=== PATIENT | female | born 1980 | race Caucasian/White ===

== ENCOUNTER 2022-10-02 15:09 | Observation (INO) | payer OTHER, SELFPAY ==
--- NOTE | 2022-10-02 | ECG_ITS ---
Test Reason : cp Blood Pressure : / mmHG Vent. Rate : 094 BPM Atrial Rate : 094 BPM P-R Int : 172 ms QRS Dur : 076 ms QT Int : 362 ms P-R-T Axes : 042 011 160 degrees QTc Int : 452 ms Normal sinus rhythm ST & T wave abnormality, consider inferolateral ischemia ; could be related to LVH Abnormal ECG No previous ECGs available Referred By: Generic ED Physician Electronically Signed By:NISHI MCGEE
--- NOTE | ~2022-10-02 | CT_ITS ---
EXAMINATION: CT ANGIOGRAM OF THE CHEST WITH AND WITHOUT CONTRAST (CT PULMONARY ANGIOGRAM FOR PE) CLINICAL INFORMATION: Acute chest pain and shortness of breath radiating to back r/o PE COMPARISON: None available. TECHNIQUE: Prior to contrast administration, noncontrast localization images were obtained. Subsequently, multidetector volumetric imaging was performed from the thoracic inlet to below the diaphragms following the administration of 85 mL Omnipaque 350 intravenous contrast. No contrast reaction reported Sagittal, coronal, and MIP oblique sagittal reformatted images were obtained on the CT workstation, uploaded to PACS, and reviewed. This CT examination was performed using dose optimization techniques as appropriate, variously including the following: *Automated exposure control *Adjustment of mA and/or kV according to patient size (this includes techniques or standardized protocols for targeted exams where dose is matched to indication/reason for exam; i.e. extremities or head) *Use of iterative reconstruction technique Total exam dose-length product 593 mGy-cm FINDINGS: QUALITY OF STUDY/CONTRAST BOLUS: Suboptimal. PULMONARY ARTERIES: Evaluation is somewhat limited due to patient body habitus and motion. However, accounting for this limitation, no discrete central pulmonary emboli nor large segmental pulmonary emboli are seen. THORACIC AORTA: No aneurysm. LUNG: Focal airspace opacities in the lingula for instance axial image 261 series 8. Mild diffuse bronchial wall thickening with mosaic attenuation of lung parenchyma. Central airways are patent. PLEURA: No pleural effusion or pneumothorax. MEDIASTINUM: Normal heart size. No pericardial effusion. No hilar or mediastinal lymphadenopathy. No evidence of septal bowing or right heart strain. CORONARY ARTERY CALCIFICATION: Mild coronary artery calcifications. CHEST WALL/AXILLA: Fairly symmetric bilateral axillary lymph nodes, likely reactive. OSSEOUS STRUCTURES: No acute or suspicious osseous abnormality. UPPER ABDOMEN: Decreased attenuation of liver parenchyma suggesting hepatic steatosis. No reflux of contrast into the hepatic veins to suggest elevated right heart pressures. CT/CT angio chest PE protocol IMPRESSION: 1. Evaluation is somewhat limited due to patient body habitus and motion. However, accounting for this limitation, no discrete central pulmonary emboli nor large segmental pulmonary emboli are seen. 2. No evidence of increased right-sided heart pressures. 3. Focal airspace opacities in the lingula could be related with an infectious or inflammatory process of the small airways. Recommend a short-term follow-up chest CT to ensure resolution. 4. Hepatic steatosis. VTE: negative
[2022-10-02 15:24] VITALS: BP 207/123; BP 234/112; PULSE 107; PULSE 99; RESP 16; TEMP 36.9; O2SAT 97; O2SAT 98; BMI 68.8
--- NOTE | 2022-10-02 15:26 | ED.SYNCOPE ---
HPI - Syncope General Chief Complaint: Chest Pain Stated Complaint: chest tightness per ems Time Seen by Provider: 10/02/22 15:21 Source: patient and EMS Mode of arrival: EMS Limitations: no limitations History of Present Illness HPI narrative: A 2-year-old female with history of hypertension presents with chest pain, shortness of breath. Her predominant complaint is dyspnea. Symptoms are severe. They are progressive and been going on for several weeks. She does describe a chest heaviness that the substernal. She reports that the heaviness does radiate to the back. Patient describes the pain as mild to moderate. She describes shortness of breath is moderate to severe. Her symptoms are significantly worsened by exertion and that is in particular her breathing. Her chest discomfort is more related to deep inspiration. She denies any fevers or chills. She denies a cough or mucus production. There has been no nausea vomiting. She did recently have blood pressure medication changes. She is otherwise compliant with medications. Denies any drugs or alcohol abuse. Patient takes losartan for blood pressure. Related Data Allergies Allergy/AdvReac Type Severity Reaction Status Date / Time aspirin Allergy Unknown unknown Verified 10/02/22 15:23 Review of Systems Review of Systems: CONSTITUTIONAL: Denies weight loss, fever and chills. HEENT: Denies changes in vision and hearing. RESPIRATORY: + SOB - cough. CV: Denies palpitations + CP. GI: Denies abdominal pain, nausea, vomiting and diarrhea. : Denies dysuria and urinary frequency. MSK: Denies myalgia and joint pain. SKIN: Denies rash and pruritus. NEUROLOGICAL: Denies headache and syncope. PSYCHIATRIC: Denies recent changes in mood. Denies anxiety and depression. All other ROS are negative unless in HPI PMFSH Past Medical History Medical History Hypertension Social History Social History Alcohol intake: current Alcohol intake frequency: holidays/special occasions only Smoked in Last 30 Days: Yes Use of substances other than those prescribed or required for medical reasons: No Advance Directives: No Advance Directives Information Provided: No Patient : No Physical Exam Vital Signs: Vital Signs: Last Vital Signs Temp 98.1 F 10/02/22 17:20 Pulse 86 10/02/22 20:07 Resp 20 08/03/23 20:07 BP 178/100 H 10/02/22 20:07 Pulse Ox 96 10/02/22 20:07 O2 Del Method Room Air 10/02/22 20:07 BMI result Body Mass Index 68.8 GEN: Well developed, no acute distress, alert, oriented HEENT: Normocephalic, atraumatic, normal external ears, nose appears normal, no oropharyngeal edema or exudates Eyes: Normal to appearance Neck: Supple, no lymphadenopathy Respiratory: Talks in complete sentences, no respiratory distress, clear to auscultation bilaterally Cardiovascular: Regular rate and rhythm, no murmurs rubs or gallops Abdomen: Soft, nontender, nondistended, no guarding, no rebound Back: No CVA tenderness Extremities: No clubbing cyanosis 1+ bipedal edema Neurologic: No focal neurologic deficits, cranial nerves 2-12 intact, strength is 5/5 bilaterally Skin: No rash Course Reevaluation(s) Reevaluation #1: Patient is currently have recurrent chest pain. Mild and substernal. She described as heaviness. Repeating a troponin. Trying sublingual nitroglycerin. Patient has an abnormal EKG. CT scan is negative for . At this point, I am seriously considering hospitalization. Time: 18:55 Reevaluation #2: Second set of cardiac enzymes is negative. I contacted the electronic intelligence officer who recommends hospitalization an echocardiogram in the morning. I discussed the case with hospitalist. Will discuss with the patient as well. Time: 20:35 Medications Administered Discontinued Medications Generic Name Dose Route Start Last Admin Trade Name Freq PRN Reason Stop Dose Admin Sodium Chloride 1,000 mls @ 999 mls/hr 10/02/22 15:30 10/02/22 19:16 Ns IV 10/02/22 16:30 Infused .Q1H1M MARCI Infusion Iohexol 85 ml 10/02/22 16:40 10/02/22 16:40 Iohexol 350 Mg/Ml 100 Ml Infus..Btl IV 10/02/22 16:41 85 ml ONCE ONE Administration Labetalol HCl 100 mg 10/02/22 15:34 10/02/22 15:37 Labetalol Hcl 100 Mg Tablet PO 10/02/22 15:35 100 mg ONCE ONE Administration Protocol Medical Decision Making Medical Decision Making MDM Narrative: Patient presents with chest pain, shortness of breath and pain radiating to her back. Differential diagnosis includes acute coronary syndrome, hypertensive urgency, PE, dissection, atypical chest pain, pleurisy, pneumonia, bronchitis. On examination she does have by pedal edema. She has nonreproducible chest pain. Her lungs are clear to auscultation bilaterally without rales or crackles. I plan for the patient will be to obtain a CT angiogram of the chest and only rule out pulmonary embolus but also to assess her aorta for dissection. Additionally, I will check for acute coronary syndrome with cardiac enzymes, EKG. Patient is moderately hypertensive I will give patient labetalol. She did take her losartan earlier today. She likely needs to be on multiple medications. Will check for laboratory analysis to find out if there are any additional other issues including cardiac enzyme, CBC, chemistry. Patient may warrant hospitalization 1 for symptoms 2 for blood pressure and 3 for any other potential abnormalities noted on laboratory analysis. Differential Diagnosis Differential Diagnoses: The differential diagnosis associated with the presentation includes (See above) Admission/Observation Consideration of admission/observation: Escalation of care including admission/observation considered Lab Data MDM Lab Attestation statement: I reviewed the patient's lab results. 10/02/22 15:55 10/02/22 15:56 Labs: Lab Results 10/02/22 10/02/22 10/02/22 Range/Units 15:55 15:55 15:55 WBC 10.2 (4.8-10.8) X10*3/uL RBC 4.50 (4.20-5.50) X10*6/uL Hgb 9.1 L (12.0-16.0) g/dl Hct 32.3 L (37.0-47.0) % MCV 71.8 L (80.0-98.0) fL MCH 20.2 L (27.0-33.0) pg MCHC 28.2 L (31.0-35.0) g/dl RDW 20.9 H (11.0-16.0) % Plt Count 322 (160-400) X10*3/uL MPV 9.2 L (9.4-12.3) fL Immature Gran % (Auto) 0.7 H (0.0-0.4) % Neut % (Auto) 68.7 (45-73) % Lymph % (Auto) 18.5 L (20-40) % [place] % (Auto) 6.7 (2-11) % Eos % (Auto) 4.9 H (0-4) % Baso % (Auto) 0.5 (0-2) % Lymph # (Auto) 1.9 (1.2-4.9) X10*3/uL [place] # (Auto) 0.7 (0.1-1.2) X10*3/uL Eos # (Auto) 0.5 H (0.0-0.4) X10*3/uL Baso # (Auto) 0.1 (0.0-0.2) X10*3/uL Abs Immat Gran (auto) 0.07 H (0.00-0.03) X10*3/uL Absolute Neuts (auto) 7.0 (2.0-8.3) x10*3/uL Absolute Nucleated RBC 0.000 (0.0-0.012) X10*3/uL Nucleated RBC % (auto) 0.0 (0.0-0.2) /100WBC Sodium (135-145) mmol/L Potassium (3.3-5.1) mmol/L Chloride (96-108) mmol/L Carbon Dioxide (22-29) mmol/L Anion Gap (12-20) BUN (9-16) mg/dL Creatinine (0.5-1.4) mg/dL Estim Creat Clear Calc Estimated GFR Random Glucose (60-115) mg/dL Calcium (8.4-10.2) mg/dL Troponin I High Sens 13.1 (<3.5-17.0) ng/L B-Natriuretic Peptide (<100) pg/mL Beta HCG, Quant < 2 mIU/mL Urine Opiates Screen (Not Detect) Urine Fentanyl Screen (Not Detect) Ur Barbiturates Screen (Not Detect) Ur Phencyclidine Scrn (Not Detect) Ur Amphetamines Screen (Not Detect) U Benzodiazepines Scrn (Not Detect) Urine Cocaine Screen (Not Detect) U Marijuana (THC) Screen (Not Detect) Ethyl Alcohol mg/dL 10/02/22 10/02/22 10/02/22 Range/Units 15:55 15:56 19:26 WBC (4.8-10.8) X10*3/uL RBC (4.20-5.50) X10*6/uL Hgb (12.0-16.0) g/dl Hct (37.0-47.0) % MCV (80.0-98.0) fL MCH (27.0-33.0) pg MCHC (31.0-35.0) g/dl RDW (11.0-16.0) % Plt Count (160-400) X10*3/uL MPV (9.4-12.3) fL Immature Gran % (Auto) (0.0-0.4) % Neut % (Auto) (45-73) % Lymph % (Auto) (20-40) % [place] % (Auto) (2-11) % Eos % (Auto) (0-4) % Baso % (Auto) (0-2) % Lymph # (Auto) (1.2-4.9) X10*3/uL [place] # (Auto) (0.1-1.2) X10*3/uL Eos # (Auto) (0.0-0.4) X10*3/uL Baso # (Auto) (0.0-0.2) X10*3/uL Abs Immat Gran (auto) (0.00-0.03) X10*3/uL Absolute Neuts (auto) (2.0-8.3) x10*3/uL Absolute Nucleated RBC (0.0-0.012) X10*3/uL Nucleated RBC % (auto) (0.0-0.2) /100WBC Sodium 142 (135-145) mmol/L Potassium 3.5 (3.3-5.1) mmol/L Chloride 105 (96-108) mmol/L Carbon Dioxide 24 (22-29) mmol/L Anion Gap 17 (12-20) BUN 16 (9-16) mg/dL Creatinine 1.24 (0.5-1.4) mg/dL Estim Creat Clear Calc 96.5 Estimated GFR 47 Random Glucose 161 H (60-115) mg/dL Calcium 9.5 (8.4-10.2) mg/dL Troponin I High Sens (<3.5-17.0) ng/L B-Natriuretic Peptide 73 (<100) pg/mL Beta HCG, Quant mIU/mL Urine Opiates Screen Not Detected (Not Detect) Urine Fentanyl Screen Not Detected (Not Detect) Ur Barbiturates Screen Not Detected (Not Detect) Ur Phencyclidine Scrn Not Detected (Not Detect) Ur Amphetamines Screen Not Detected (Not Detect) U Benzodiazepines Scrn Not Detected (Not Detect) Urine Cocaine Screen Not Detected (Not Detect) U Marijuana (THC) Screen Not Detected (Not Detect) Ethyl Alcohol < 10 mg/dL 10/02/22 Range/Units 19:47 WBC (4.8-10.8) X10*3/uL RBC (4.20-5.50) X10*6/uL Hgb (12.0-16.0) g/dl Hct (37.0-47.0) % MCV (80.0-98.0) fL MCH (27.0-33.0) pg MCHC (31.0-35.0) g/dl RDW (11.0-16.0) % Plt Count (160-400) X10*3/uL MPV (9.4-12.3) fL Immature Gran % (Auto) (0.0-0.4) % Neut % (Auto) (45-73) % Lymph % (Auto) (20-40) % [place] % (Auto) (2-11) % Eos % (Auto) (0-4) % Baso % (Auto) (0-2) % Lymph # (Auto) (1.2-4.9) X10*3/uL [place] # (Auto) (0.1-1.2) X10*3/uL Eos # (Auto) (0.0-0.4) X10*3/uL Baso # (Auto) (0.0-0.2) X10*3/uL Abs Immat Gran (auto) (0.00-0.03) X10*3/uL Absolute Neuts (auto) (2.0-8.3) x10*3/uL Absolute Nucleated RBC (0.0-0.012) X10*3/uL Nucleated RBC % (auto) (0.0-0.2) /100WBC Sodium (135-145) mmol/L Potassium (3.3-5.1) mmol/L Chloride (96-108) mmol/L Carbon Dioxide (22-29) mmol/L Anion Gap (12-20) BUN (9-16) mg/dL Creatinine (0.5-1.4) mg/dL Estim Creat Clear Calc Estimated GFR Random Glucose (60-115) mg/dL Calcium (8.4-10.2) mg/dL Troponin I High Sens 14.3 (<3.5-17.0) ng/L B-Natriuretic Peptide (<100) pg/mL Beta HCG, Quant mIU/mL Urine Opiates Screen (Not Detect) Urine Fentanyl Screen (Not Detect) Ur Barbiturates Screen (Not Detect) Ur Phencyclidine Scrn (Not Detect) Ur Amphetamines Screen (Not Detect) U Benzodiazepines Scrn (Not Detect) Urine Cocaine Screen (Not Detect) U Marijuana (THC) Screen (Not Detect) Ethyl Alcohol mg/dL Independent Interpretation I performed an independent interpretation of an: EKG (Normal sinus rhythm heart rate 94, abnormal EKG including T-wave inversions in multiple leads, ST depression noted in lead 1, 2. Evidence of LVH.) and CT Scan (No PE or dissection seen on CT angiogram of the chest personal interpretation) Radiology Impression Discussion of test interpretation with radiology: I have reviewed the radiologist's reading. Radiologist Impression: CT/CT angio chest PE protocol IMPRESSION: 1.? Evaluation is somewhat limited due to patient body habitus and motion. However, accounting for this limitation, no discrete central pulmonary emboli nor large segmental pulmonary emboli are seen. 2.? No evidence of increased right-sided heart pressures. 3.? Focal airspace opacities in the lingula could be related with an infectious or inflammatory process of the small airways. Recommend a short-term follow-up chest CT to ensure resolution. 4.? Hepatic steatosis. ? VTE: negative Dictated By: Monica Mendoza Signed By: <Electronically signed by Ben Mendoza in [place]> 10/02/22 [id number] Prescription Management I considered prescription management with: Pain Medication and Other (Antihypertensive) Chronic Conditions Patient?s care impacted by: Hypertension Critical Care Time Critical Care Time Critical Care Time: Yes Total Critical Care Time: 45 Attestation: Approximately 45 minutes of critical care time was spent on patient care including direct patient care, discussion with EMS, discussion with other providers, direct patient care, re-evaluation, interpretation and medical data a potentially life-threatening issue. Consideration of diagnosis included aortic dissection, hypertensive urgency/emergency. Discharge Plan Discharge Clinical Impression: Chest pain, Hypertensive urgency, Acute dyspnea, Abnormal ECG, Anemia Patient Disposition: Admitted as Observation
[2022-10-02] MEDS: Labetalol HCL 100 MG TABLET PO (15:37)
[2022-10-02] MEDS: 0.9 % Sodium Chloride 1,000 ML 999 ML IV (15:59)
--- NOTE | 2022-10-02 16:00 | PC.NURSE ---
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 pt was found outside in her car by ems. pt told ems that she was not able to stand up d/t thinking she may faint. pt transferred to [facility]. ekg performed. 20g IV placed in the right AC w/o complications. labs drawn and sent to lab. pt verbalizing 0/10 chest pain but more tightness that radiates between her shoulder blades. pt stating she has SOB upon inspiration. pt displaying no WOB. pt speaking in clear, full sentences. medication and IVF administered per provider order. call sandhu placed within reach.
[2022-10-02 16:03] LABS: MANUAL DIFF FLAG NO
[2022-10-02 16:05] LABS: Basophils Absolute Auto 0.1 X10*3/uL (0.0-0.2); Basophils Percent Auto 0.5 % (0-2); Eosinophils Absolute Auto 0.5 X10*3/uL (0.0-0.4); Eosinophils Percent Auto 4.9 % (0-4); Hematocrit 32.3 % (37.0-47.0); Hemoglobin 9.1 g/dl (12.0-16.0); Imm Gran Abs Auto 0.07 X10*3/uL (0.00-0.03); Imm Gran Pct Auto 0.7 % (0.0-0.4); Lymphocytes Absolute Auto 1.9 X10*3/uL (1.2-4.9); Lymphocytes Percent Auto 18.5 % (20-40); Mean Corpuscular HGB Conc 28.2 g/dl (31.0-35.0); Mean Corpuscular Hemoglobin 20.2 pg (27.0-33.0); Mean Corpuscular Volume 71.8 fL (80.0-98.0); Mean Platelet Volume 9.2 fL (9.4-12.3); Monocytes Absolute Auto 0.7 X10*3/uL (0.1-1.2); Monocytes Percent Auto 6.7 % (2-11); Neutrophils Percent Auto 68.7 % (45-73); Platelet Count 322 X10*3/uL (160-400); Red Cell Distribution Width 20.9 % (11.0-16.0); White Blood Count 10.2 X10*3/uL (4.8-10.8)
[2022-10-02 16:22] LABS: Anion Gap 17 (12-20); Blood Urea Nitrogen 16 mg/dL (9-16); Calcium 9.5 mg/dL (8.4-10.2); Carbon Dioxide 24 mmol/L (22-29); Chloride 105 mmol/L (96-108); Creatinine Clr Calc Pharmacy 96.5; Estimated Glomerular Filt Rate 47; Ethanol < 10 mg/dL; Glucose Random 161 mg/dL (60-115); Potassium 3.5 mmol/L (3.3-5.1); Sodium 142 mmol/L (135-145)
[2022-10-02 16:25] LABS: B Type Natriuretic Peptide 73 pg/mL (<100)
[2022-10-02 16:27] LABS: Troponin-I High Sensitivity 13.1 ng/L (<3.5-17.0)
[2022-10-02 16:28] LABS: HCG Quantitative < 2 mIU/mL
[2022-10-02] MEDS: iohexoL 350 MG/ML 100 ML INFUS..BTL 85 ML IV (16:40)
[2022-10-02 17:20] VITALS: BP 171/102; PULSE 80; RESP 15; TEMP 36.7; O2SAT 95
[2022-10-02 20:07] VITALS: BP 178/100; PULSE 86; RESP 20; O2SAT 96
--- NOTE | 2022-10-02 20:09 | MHC.EDTECH ---
Pt one assisted to commode, able to reposition self in bed.
[2022-10-02 20:10] LABS: Amphetamine Screen Urine Not Detected (Not Detect); Barbiturates, Urine Not Detected (Not Detect); Benzodiazepines Screen Urine Not Detected (Not Detect); Cannabinoid Screen Urine Not Detected (Not Detect); Cocaine Screen Urine Not Detected (Not Detect); Fentanyl, urine Not Detected (Not Detect); Opiate Screen Urine Not Detected (Not Detect); Phencyclidine Screen Urine Not Detected (Not Detect)
[2022-10-02 20:17] LABS: Troponin-I High Sensitivity 14.3 ng/L (<3.5-17.0)
--- NOTE | 2022-10-02 20:45 | PM.IMHP ---
History of Present Illness Date of Service: 10/02/22 Chief Complaint: Chest pain This is a 42-year-old female with pertinent history of essential hypertension, chronic back pain, gastroesophageal reflux disease who presents to the emergency department for evaluation of chest pain and dyspnea. Patient states she has had intermittent substernal chest discomfort that has been ongoing for a while. It is worse with exertion but does not relieve at rest. Does not tried nitroglycerin. It radiates to the left arm and sometimes to the back. No sweating, nausea associated with the pain. No history of CAD. Patient states he also has dyspnea, worse with exertion that has been ongoing for a while. No cough, fever, chills or wheezing. Patient denies palpitations, abdominal pain, changes in urinary or bowel habits. She states he only takes losartan for high blood pressure. Former smoker. Admits that she does have RENETTA but does not use CPAP at home In the emergency department, troponin was found to be negative but EKG was abnormal. Cardiology was consulted who requested admission Review of Systems Constitutional: Constitutional: Reports no additional constitutional complaints Cardiovascular: Cardiovascular: Reports chest pain at rest, Reports chest pain with activity and Reports dyspnea on exertion Respiratory: Respiratory: Reports dyspnea on exertion Gastrointestinal: Gastrointestinal: Reports no additional gastrointestinal complaints Genitourinary: Genitourinary: Reports no additional female genitourinary complaints [facility] Medical History Chronic back pain COPD (chronic obstructive pulmonary disease) GERD (gastroesophageal reflux disease) Hypertension Pertinent family history: No family history of early CAD Social History Alcohol intake: current Alcohol intake frequency: holidays/special occasions only Smoked in Last 30 Days: Yes Use of substances other than those prescribed or required for medical reasons: No Advance Directives: No Advance Directives Information Provided: No Patient : No Meds Allergies Allergy/AdvReac Type Severity Reaction Status Date / Time aspirin Allergy Unknown unknown Verified 10/02/22 15:23 Home Medications Medication Instructions Recorded Confirmed Last Taken Type albuterol sulfate 90 mcg/actuation 2 puff inhalation Q6H 10/02/22 Unknown History aerosol inhaler (Ventolin HFA) budesonide-formoterol HFA 80 2 puff inhalation BID 10/02/22 Unknown History mcg-4.5 mcg/actuation aerosol inhaler (Symbicort) clindamycin phosphate 1 % topical topical BID 10/02/22 Unknown History gel cyclobenzaprine 5 mg tablet 5 mg PO TID PRN moderate pain 10/02/22 Unknown History losartan 50 mg tablet 50 mg PO DAILY 10/02/22 Unknown History meloxicam 15 mg tablet 15 mg PO DAILY 10/02/22 Unknown History pantoprazole 40 mg tablet,delayed 40 mg PO DAILY@0630 10/02/22 Unknown History release pregabalin 25 mg capsule 25 mg PO TID 10/02/22 Unknown History tizanidine 4 mg tablet 8 mg PO TID 10/02/22 Unknown History Physical Exam Vital Signs and Narrative: Vital Signs: Last Vital Signs Temp 98.1 F 10/02/22 17:20 Pulse 86 10/02/22 20:07 Resp 20 10/02/22 20:07 BP 178/100 H 10/02/22 20:07 Pulse Ox 96 10/02/22 20:07 O2 Del Method Room Air 10/02/22 20:07 BMI result Body Mass Index 68.8 Obese middle-aged female lying in bed in no distress Neck supple Regular rate and rhythm, S1-S2 heard Reduced breath sound at bases Abdomen soft nontender, no guarding, no rigidity Patient is awake, alert and oriented to self, place, time and person ; no focal motor deficit Psych: Normal mood Results Labs 10/02/22 15:55 10/02/22 15:56 Labs: Laboratory Results - last 24 hr 10/02/22 10/02/22 10/02/22 15:55 15:55 15:55 MCV 71.8 L MCH 20.2 L MCHC 28.2 L RDW 20.9 H Plt Count 322 MPV 9.2 L Immature Gran % (Auto) 0.7 H Neut % (Auto) 68.7 Lymph % (Auto) 18.5 L [place] % (Auto) 6.7 Eos % (Auto) 4.9 H Baso % (Auto) 0.5 Lymph # (Auto) 1.9 [place] # (Auto) 0.7 Eos # (Auto) 0.5 H Baso # (Auto) 0.1 Abs Immat Gran (auto) 0.07 H Absolute Neuts (auto) 7.0 Absolute Nucleated RBC 0.000 Nucleated RBC % (auto) 0.0 Anion Gap Estim Creat Clear Calc Estimated GFR Random Glucose Calcium B-Natriuretic Peptide 73 Beta HCG, Quant < 2 Urine Opiates Screen Urine Fentanyl Screen Ur Barbiturates Screen Ur Phencyclidine Scrn Ur Amphetamines Screen U Benzodiazepines Scrn Urine Cocaine Screen U Marijuana (THC) Screen Ethyl Alcohol 10/02/22 10/02/22 15:56 19:26 MCV MCH MCHC RDW Plt Count MPV Immature Gran % (Auto) Neut % (Auto) Lymph % (Auto) [place] % (Auto) Eos % (Auto) Baso % (Auto) Lymph # (Auto) [place] # (Auto) Eos # (Auto) Baso # (Auto) Abs Immat Gran (auto) Absolute Neuts (auto) Absolute Nucleated RBC Nucleated RBC % (auto) Anion Gap 17 Estim Creat Clear Calc 96.5 Estimated GFR 47 Random Glucose 161 H Calcium 9.5 B-Natriuretic Peptide Beta HCG, Quant Urine Opiates Screen Not Detected Urine Fentanyl Screen Not Detected Ur Barbiturates Screen Not Detected Ur Phencyclidine Scrn Not Detected Ur Amphetamines Screen Not Detected U Benzodiazepines Scrn Not Detected Urine Cocaine Screen Not Detected U Marijuana (THC) Screen Not Detected Ethyl Alcohol < 10 Imaging Radiologist's Impressions: Impressions Chest CTA 10/02/22 16:44 IMPRESSION: 1. Evaluation is somewhat limited due to patient body habitus and motion. However, accounting for this limitation, no discrete central pulmonary emboli nor large segmental pulmonary emboli are seen. 2. No evidence of increased right-sided heart pressures. 3. Focal airspace opacities in the lingula could be related with an infectious or inflammatory process of the small airways. Recommend a short-term follow-up chest CT to ensure resolution. 4. Hepatic steatosis. VTE: negative Assessment and Plan (1) Chest pain: Status: Acute Plan This is a 42-year-old female with pertinent history of essential hypertension, chronic back pain, gastroesophageal reflux disease who presents to the emergency department for evaluation of chest pain and dyspnea. #. Atypical chest discomfort. Will admit patient with cardiac monitoring. Cardiology was consulted from the ER. Obtaining echo and trending troponin #. Hypertensive urgency/emergency. Patient only on losartan at home. Amlodipine given in the ER. Will need a 2nd antihypertensive agent, appreciate Cardiology assistance. Ordering nitro patch. Obtaining UA. Avoid NSAIDs #. Microcytic anemia. Obtaining iron panel #. RENETTA. Not compliant with CPAP at home. Initiating CPAP while in the hospital #. Gastroesophageal reflux disease: On PPI #. Chronic back pain. Continue home analgesics p.r.n. Med rec pending DVT prophylaxis: Lovenox Full Code Cardiac diet Time Spent With Patient Time: Total time managing care of this patient today ____ minutes. Quality Stroke Does the patient have a stroke diagnosis?: No VTE Prior VTE?: No VTE Risk Level:: Medical - moderate - high VTE Device Contraindication: Treatment Not Indicated VTE Drug Contraindication: N/A - Med Ordered
[2022-10-02 21:10] VITALS: BP 189/109; PULSE 88; RESP 20; O2SAT 98
[2022-10-02] MEDS: amLODIPine Besylate 10 MG TABLET PO (21:17)
[2022-10-02] MEDS: Enoxaparin Sodium 40 MG/0.4 ML SYRINGE SUBCUT (21:18)
--- NOTE | 2022-10-02 21:43 | PHA.MEDREC ---
Pharmacy Consult ? Medication Reconciliation Pharmacy has completed the medication reconciliation. Pt had medications with her so med rec was able to be done using bottles. She was able to confirm how she takes her meds and states that her pcp recently said she could increase tizanidine to 8 mg tid but she has not done that yet and is only taking 4 mg tid.
[2022-10-02 21:49] VITALS: BP 170/99; PULSE 85; RESP 16; O2SAT 98
[2022-10-02] MEDS: Nitroglycerin 2 % Oint 1 GM Packet 1 INCH TRANSDERMA (21:50)
[2022-10-02 22:09] LABS: Iron 25 mcg/dL (30-160); Percent Iron Saturation 7 % (15-50); Total Iron Binding Capacity 354 mcg/dL (228-428); Unsaturated Iron Binding 329 ug/dL
--- NOTE | 2022-10-02 22:15 | MHC.CM.PN ---
ALLEN 10/02. A&Ox4. Lives with 2 daughters and grandson. Son 2 years ago from a drug overdose. Pt quite weepy when speaking about her son. Has a CPAP, but states it is not programmed correctly and does not work. Has no services. States paying the rent is difficult, but her daughters work they they contribute to the household bills. Pt is trying to get on disability. Has car. [employer] positive for housing, but patient declines any resources. Unvaccinated. Will not be vaccinated. D/C plan is home without services. Pt will arrange transportation. CM will follow for any discharge needs.
[2022-10-02 22:20] VITALS: BP 166/105; PULSE 88; RESP 20; O2SAT 94
[2022-10-02 23:24] LABS: Appearance Urine Clear; Color Urine Yellow; Glucose Urine UA 100 mg/dL (Negative); Leukocyte Esterase Urine Negative (Negative); Nitrite Urine Negative (Negative); Specific Gravity - Urine >= 1.030 (1.005-1.025); UMIC TRIGGER UACC YES; Urine Blood Negative (Negative); Urine Ketones Negative (Negative); Urine Protein 100 (2+) mg/dL (Neg-Trace)
[2022-10-02] MEDS: Melatonin 3 MG TABLET 6 MG PO (23:28)
[2022-10-02] MEDS: Acetaminophen 325 MG TABLET 650 MG PO (23:28)
[2022-10-02 23:33] LABS: Bacteria Urine 2+ (None Seen); Squamous Epithelial Cell Urine >20 /HPF (0-2); UACC Culture Trigger YES
[2022-10-03] VITALS (12 sets, daily range): BP systolic 121–184; BP diastolic 68–109; PULSE 67–98; RESP 18–20; TEMP 36.1–36.7; O2SAT 95–98
[2022-10-03 05:38] LABS: MANUAL DIFF FLAG NO
[2022-10-03 05:44] LABS: Basophils Absolute Auto 0.1 X10*3/uL (0.0-0.2); Basophils Percent Auto 0.7 % (0-2); Eosinophils Absolute Auto 0.5 X10*3/uL (0.0-0.4); Eosinophils Percent Auto 5.2 % (0-4); Hematocrit 30.4 % (37.0-47.0); Hemoglobin 8.6 g/dl (12.0-16.0); Imm Gran Abs Auto 0.06 X10*3/uL (0.00-0.03); Imm Gran Pct Auto 0.7 % (0.0-0.4); Lymphocytes Absolute Auto 1.9 X10*3/uL (1.2-4.9); Lymphocytes Percent Auto 21.5 % (20-40); Mean Corpuscular HGB Conc 28.3 g/dl (31.0-35.0); Mean Corpuscular Volume 70.9 fL (80.0-98.0); Mean Platelet Volume 9.7 fL (9.4-12.3); Monocytes Absolute Auto 0.6 X10*3/uL (0.1-1.2); Monocytes Percent Auto 6.9 % (2-11); Neutrophils Absolute Auto 5.8 x10*3/uL (2.0-8.3); Platelet Count 329 X10*3/uL (160-400); Red Blood Count 4.29 X10*6/uL (4.20-5.50); Red Cell Distribution Width 20.8 % (11.0-16.0); White Blood Count 8.9 X10*3/uL (4.8-10.8)
[2022-10-03] MEDS: Acetaminophen 325 MG TABLET 650 MG PO (05:50)
[2022-10-03 06:01] LABS: Troponin-I High Sensitivity 8.3 ng/L (<3.5-17.0)
[2022-10-03 06:11] LABS: Anion Gap 15 (12-20); Blood Urea Nitrogen 17 mg/dL (9-16); Calcium 9.3 mg/dL (8.4-10.2); Carbon Dioxide 22 mmol/L (22-29); Chloride 105 mmol/L (96-108); Creatinine Clr Calc Pharmacy 88.6; Estimated Glomerular Filt Rate 43; Glucose Random 178 mg/dL (60-115); Sodium 138 mmol/L (135-145)
--- NOTE | 2022-10-03 07:00 | CA_ITS ---
Transthoracic Echocardiogram Patient (Last, First, Middle): Martha Mullen, Gender: Female Date of : 1980 Age: 42 Procedure Date: 10/03/2022 Procedure Type: Transthoracic Echocardiogram Location: ER Height: 162.56 cm Weight: 181.89 kg BSA: 2.63 m2 Heart Rate: bpm BP: 154 / 109 mmHg Mother Tester: Referring MD: Toya Faye MD Symptoms: chest pain Study Quality: Adequate ECG Rhythm: Sinus Conclusions: - The left ventricular systolic function is normal. The calculated ejection fraction is 67% by biplane method. - No obvious valvular pathology seen on this study. Findings Left Ventricle Normal left ventricular cavity size. The left ventricular systolic function is normal. The calculated ejection fraction is 67% by biplane method. There is no evidence of regional wall motion abnormalities. Abnormal diastolic function is noted. At least moderate concentric left ventricular hypertrophy. Right Ventricle Normal right ventricular cavity size and systolic function. Atria Both atria are normal in size. Aortic Valve The aortic valve was not well visualized. There is no aortic valve stenosis. There is no aortic valve regurgitation. Mitral Valve The mitral valve appears normal. There is trace mitral valve regurgitation. There is no mitral valve stenosis. Pulmonic Valve The pulmonic valve is likely normal. Tricuspid Valve Normal tricuspid valve structure. There is trace tricuspid valve regurgitation. There is no evidence of pulmonary hypertension. Great Vessels The asc aorta is normal in size. Venous The inferior vena cava is normal in size and collapses greater than 50% with inspiration. Pericardium/Pleural There is no evidence of pericardial effusion. Prior Study Comparison No prior study available for comparison. Recommendations, Care & Conclusions No obvious valvular pathology seen on this study. Measurements 2D Linear Measurements IVSd: 1.60 0.6-0.9/0.6-1.0 cm LVIDd: 4.30 3.9-5.3/4.2-5.9 cm LVIDd Index: 1.63 2.4-3.2/2.2-3.1 cm/m2 LVIDs: 2.70 2.0-3.6 cm LVPWd: 1.70 0.7-1.1 cm Ao Root: 3.00 2.1-3.5 cm LA Diam: 5.00 2.7-3.8/3.0-4.0 cm LAIDs Index: 1.90 1.5-2.3 cm/m2 LV Mass: 373.85 67-162/88-224 g LV Mass Index: 142.15 43-95/49-115 g/m2 LVOT Diam: 2.30 3.0+(-)1.3 cm 2D Systolic Function EF 4C: 66.70 >55% EF 2C: 66.20 >55% EF BiP: 67.20 >55% Mitral Valve MV Pk E: 1.12 MV PK A: 0.69 MV Decel Time: 110.00 E/A: 1.60 E'Lateral: 6.74 E'Medial: 6.31 E/E' Med: 17.70 E/E' Lat: 16.60 PHT: 32.00 MVA PHT: 6.88 Decel Yoakum: 10.21 Aortic Valve AoV Pk Wilson: 1.97 AoV Mn Wilson: 1.38 AoV VTI: 0.37 AoV Pk Grad: 16.00 Aov Mn Grad: 9.00 ELLE Cont.VTI: 2.83 LVOT LVOT Pk Wilson: 1.23 LVOT Mn Wilson: 0.89 LVOT VTI: 0.26 LVOT Pk Grad: 6.00 LVOT Mn Grad: 4.00 LVOT Diam: 2.30 LVOT Area: 4.15 Diastolic Function MV Pk E: 1.12 MV Pk A: 0.69 E/A: 1.60 E'Medial: 6.31 E/E' Med: 17.70 E' Laterial: 6.74 E/E' Lat: 16.60 Right Ventricle TAPSE (mm): 33.00 Tricuspid Valve TR Pk Wilson: 2.54 TR Pk Grad: 26.00 RA Press: 8.00 RVSP: 34.00 Great Vessels Aorta Ao Root-2D: 3.00 2.0-3.7 cm Ao Asc: 3.80 2.1-3.4 cm Pulmonary Valve PV Pk Wilson: 1.38 Peak PV Grad: 8.00 Updated in Other Vendor System with Status of Final Kevin Roy MD electronically signed on 10/03/2022 11:27:43 AM with status of Final
[2022-10-03] MEDS: Albuterol/Iprat 2.5/0.5MG 3 ML AMPUL.NEB INHALE ×2 (07:17→11:42)
[2022-10-03] MEDS: amLODIPine Besylate 5 MG TABLET PO (09:22)
[2022-10-03] MEDS: Losartan Potassium 50 MG TABLET 100 MG PO (09:23)
--- NOTE | 2022-10-03 09:24 | PC.NURSE ---
medication administered per provider order. pharmacy called and notified that pt is missing 2 medications from the pyxis. pharmacy stated they will bring the medication down patient specific. pt verbalizing 9/10 headache and requesting medication to relieve the pain. will notify the provider.
--- NOTE | 2022-10-03 09:41 | P.CONCA_ITS ---
History of Present Illness History of Present Illness Date of Service: 10/03/22 Chief complaint: chest tightness per ems Narrative: This is a cardiology consultation regarding uncontrolled hypertension as well as chest pain. Patient does not have any known cardiac issues including coronary artery disease or myocardial infarction or cardiomyopathy. She is morbidly obese. She is also fairly sedentary. There is a question of asthma at baseline and she uses some inhalers. She states she does get episodes of chest tightening but whenever she takes inhalers that generally goes away. However, yesterday it did go away completely and hence she came to the ER. She has also been having aches and pains essentially all over the body and also headache. Blood pressure was quite high when she came in. The maximum blood pressure was 207/120 mm Hg upon arrival. Right now, 184/99 mm Hg. Troponins have been checked and they were all within normal limits. Review of Systems Review of Systems: Yes all other systems are reviewed and are negative Constitutional: Constitutional: Reports as per HPI and Reports no additional constitutional complaints Eyes: Eyes: Reports as per HPI and Denies no additional eye complaints ENT: Denies system reviewed and no additional complaints, except as documented and Reports as per HPI Cardiovascular: Cardiovascular: Reports as per HPI, Reports no additional cardiovascular complaints, Denies acrocyanosis, Denies cool extremities, Reports chest pain, Denies leg edema, Denies lightheadedness, Denies palpitations and Reports dyspnea Respiratory: Respiratory: Reports as per HPI, Denies no additional respiratory complaints and Reports dyspnea Gastrointestinal: Gastrointestinal: Reports as per HPI and Denies no additional gastrointestinal complaints Genitourinary: Genitourinary: Reports as per HPI Musculoskeletal: Musculoskeletal: Reports no additional musculoskeletal complaints and Reports as per HPI Integumentary/Breasts: Skin/Breast: Reports system reviewed and no additional complaints, except as docu Neurologic: Reports system reviewed and no additional complaints, except as documented and Reports as per HPI Psychiatric: Psychiatric: Reports no additional psychiatric complaints and Reports as per HPI Endocrine: Endocrine: Reports no additional endocrine complaints, Reports as per HPI and Denies palpitations Hematologic/Lymphatic: Hematologic/Lymphatic: Reports no additional hematologic/lymphatic complaints and Reports as per HPI Allergic/Immunologic: Allergic/Immunologic: Reports no additional allergic/immunologic complaints and Reports as per HPI [facility] Past Medical History Medical History Chronic back pain COPD (chronic obstructive pulmonary disease) GERD (gastroesophageal reflux disease) Hypertension Family History Pertinent family history: Vague history of cardiac issues in father side. Social History Social History Alcohol intake: current Alcohol intake frequency: holidays/special occasions only Smoked in Last 30 Days: Yes Use of substances other than those prescribed or required for medical reasons: No Advance Directives: No Advance Directives Information Provided: No Patient : No service: No Meds Allergies Allergy/AdvReac Type Severity Reaction Status Date / Time aspirin Allergy Unknown unknown Verified 10/02/22 15:23 Active Medications: Current Medications Acetaminophen (Acetaminophen 325 Mg Tablet) 650 mg PO Q6H PRN PRN Reason: Pain, Mild (Pain Scale 1-3) Last Admin: 10/03/22 05:50 Dose: 650 mg Albuterol/Ipratropium (Albuterol/Iprat 2.5/0.5mg 3 Ml Ampul.Neb) 3 ml INHALE RQ4H WHILE AWAKE [facility] Last Admin: 10/03/22 07:17 Dose: 3 ml Albuterol/Ipratropium (Albuterol/Iprat 2.5/0.5mg 3 Ml Ampul.Neb) 3 ml INHALE Q4H PRN PRN Reason: Wheezing Amlodipine Besylate (Amlodipine Besylate 5 Mg Tablet) 5 mg PO DAILY [facility]; Protocol Last Admin: 10/03/22 09:22 Dose: 5 mg Enoxaparin Sodium (Enoxaparin Sodium 40 Mg/0.4 Ml Syringe) 40 mg SUBCUT Q12H [facility] Last Admin: 10/02/22 21:18 Dose: 40 mg Fluticasone/Vilanterol (Fluticasone/Vilanterol 200/25 Blst.W.Dev) 1 puff INHALE RDAILY [facility] Losartan Potassium (Losartan Potassium 50 Mg Tablet) 100 mg PO DAILY [facility]; Protocol Last Admin: 10/03/22 09:23 Dose: 100 mg Melatonin (Melatonin 3 Mg Tablet) 6 mg PO BEDTIME PRN PRN Reason: Insomnia Last Admin: 10/02/22 23:28 Dose: 6 mg Omeprazole (Omeprazole 20 Mg Capsule.Dr) 20 mg PO DAILY@0630 [facility] Ondansetron HCl (Ondansetron Hcl 4 Mg/2 Ml Vial) 4 mg IVPUSH Q8H PRN PRN Reason: Nausea and Vomiting Pharmacy Consult (Consult Rx Perform Med Rec) 1 each MISCELLANE ONCE PRN PRN Reason: Consult order Sodium Chloride (0.9 % Sodium Chloride Flush 3 Ml Syringe) 3 [facility] Last Admin: 10/03/22 07:41 Dose: Not Given Tizanidine HCl (Tizanidine Hcl 4 Mg Tablet) 4 mg PO TID [facility] Home Medications Medication Instructions Recorded Confirmed Last Taken Type acetaminophen 325 mg tablet 650 mg PO Q6H PRN Pain 10/02/22 10/02/22 Unknown History (Tylenol) albuterol sulfate 90 mcg/actuation 2 puff inhalation Q6H 10/02/22 10/02/22 Unknown History aerosol inhaler (Ventolin HFA) budesonide-formoterol HFA 80 2 puff inhalation BID 10/02/22 10/02/22 10/02/22 History mcg-4.5 mcg/actuation aerosol inhaler (Symbicort) losartan 50 mg tablet 50 mg PO DAILY 10/02/22 10/02/22 10/02/22 History meloxicam 15 mg tablet 15 mg PO BID 10/02/22 10/02/22 10/02/22 History pantoprazole 40 mg tablet,delayed 40 mg PO DAILY@0630 10/02/22 10/02/22 10/02/22 History release tizanidine 4 mg tablet 4 mg PO TID 10/02/22 10/02/22 10/02/22 History Physical Exam Vital Signs: Vital Signs: Last Vital Signs Temp 98.1 F 10/03/22 02:13 Pulse 91 10/03/22 07:52 Resp 18 10/03/22 07:52 BP 184/99 H 10/03/22 07:52 Pulse Ox 98 10/03/22 07:52 O2 Del Method Simple Mask 10/03/22 07:52 O2 Flow Rate 4 10/03/22 07:52 BMI result Body Mass Index 68.8 Const: General: comfortable and no acute distress Orientation/consciousness: patient oriented x3 HEENT: Other: Unremarkable Head: Yes normal to inspection Neck: Neck: Yes normal visual inspection Chest: Chest palpation & inspection: normal inspection of the chest Resp: Auscultation: clear to auscultation bilaterally Cardio: Palpation: normal PMI Heart sounds: S1 normal heart sound present, S2 normal heart sound present, no gallops, no murmurs and no rubs GI: Palpation (GI): Soft to palpation Back/Spine/Pelvis: Other: unremarkable Skin: General skin exam: no rashes or lesions noted Neuro: General: patient oriented x3 Extrem: General: Yes normal to inspection Psych: Mental Status: mental status grossly normal Objective Labs and Meds 10/03/22 05:29 10/03/22 05:29 Lab results: Laboratory Results - last 24 hr 10/02/22 10/02/22 10/02/22 15:55 15:55 15:55 WBC 10.2 RBC 4.50 Hgb 9.1 L Hct 32.3 L MCV 71.8 L MCH 20.2 L MCHC 28.2 L RDW 20.9 H Plt Count 322 MPV 9.2 L Immature Gran % (Auto) 0.7 H Neut % (Auto) 68.7 Lymph % (Auto) 18.5 L [place] % (Auto) 6.7 Eos % (Auto) 4.9 H Baso % (Auto) 0.5 Lymph # (Auto) 1.9 [place] # (Auto) 0.7 Eos # (Auto) 0.5 H Baso # (Auto) 0.1 Abs Immat Gran (auto) 0.07 H Absolute Neuts (auto) 7.0 Absolute Nucleated RBC 0.000 Nucleated RBC % (auto) 0.0 Sodium Potassium Chloride Carbon Dioxide Anion Gap BUN Creatinine Estim Creat Clear Calc Estimated GFR Random Glucose Calcium Iron TIBC % Saturation Unsat Iron Binding Troponin I High Sens 13.1 B-Natriuretic Peptide Beta HCG, Quant < 2 Urine Color Urine Appearance Urine pH Ur Specific Christine Urine Protein Urine Glucose (UA) Urine Ketones Urine Blood Urine Nitrite Ur Leukocyte Esterase Urine RBC Urine WBC Ur Squamous Epith Cells Urine Bacteria Hyaline Casts Urine Opiates Screen Urine Fentanyl Screen Ur Barbiturates Screen Ur Phencyclidine Scrn Ur Amphetamines Screen U Benzodiazepines Scrn Urine Cocaine Screen U Marijuana (THC) Screen Ethyl Alcohol 10/02/22 10/02/22 10/02/22 15:55 15:56 19:26 WBC RBC Hgb Hct MCV MCH MCHC RDW Plt Count MPV Immature Gran % (Auto) Neut % (Auto) Lymph % (Auto) [place] % (Auto) Eos % (Auto) Baso % (Auto) Lymph # (Auto) [place] # (Auto) Eos # (Auto) Baso # (Auto) Abs Immat Gran (auto) Absolute Neuts (auto) Absolute Nucleated RBC Nucleated RBC % (auto) Sodium 142 Potassium 3.5 Chloride 105 Carbon Dioxide 24 Anion Gap 17 BUN 16 Creatinine 1.24 Estim Creat Clear Calc 96.5 Estimated GFR 47 Random Glucose 161 H Calcium 9.5 Iron TIBC % Saturation Unsat Iron Binding Troponin I High Sens B-Natriuretic Peptide 73 Beta HCG, Quant Urine Color Urine Appearance Urine pH Ur Specific Christine Urine Protein Urine Glucose (UA) Urine Ketones Urine Blood Urine Nitrite Ur Leukocyte Esterase Urine RBC Urine WBC Ur Squamous Epith Cells Urine Bacteria Hyaline Casts Urine Opiates Screen Not Detected Urine Fentanyl Screen Not Detected Ur Barbiturates Screen Not Detected Ur Phencyclidine Scrn Not Detected Ur Amphetamines Screen Not Detected U Benzodiazepines Scrn Not Detected Urine Cocaine Screen Not Detected U Marijuana (THC) Screen Not Detected Ethyl Alcohol < 10 10/02/22 10/02/22 10/02/22 19:26 19:47 19:47 WBC RBC Hgb Hct MCV MCH MCHC RDW Plt Count MPV Immature Gran % (Auto) Neut % (Auto) Lymph % (Auto) [place] % (Auto) Eos % (Auto) Baso % (Auto) Lymph # (Auto) [place] # (Auto) Eos # (Auto) Baso # (Auto) Abs Immat Gran (auto) Absolute Neuts (auto) Absolute Nucleated RBC Nucleated RBC % (auto) Sodium Potassium Chloride Carbon Dioxide Anion Gap BUN Creatinine Estim Creat Clear Calc Estimated GFR Random Glucose Calcium Iron 25 L TIBC 354 % Saturation 7 L Unsat Iron Binding 329 Troponin I High Sens 14.3 B-Natriuretic Peptide Beta HCG, Quant Urine Color Yellow Urine Appearance Clear Urine pH 6.0 Ur Specific Christine >= 1.030 H Urine Protein 100 (2+) H Urine Glucose (UA) 100 H Urine Ketones Negative Urine Blood Negative Urine Nitrite Negative Ur Leukocyte Esterase Negative Urine RBC 3-5 H Urine WBC 11-20 H Ur Squamous Epith Cells >20 Urine Bacteria 2+ Hyaline Casts 3-5 Urine Opiates Screen Urine Fentanyl Screen Ur Barbiturates Screen Ur Phencyclidine Scrn Ur Amphetamines Screen U Benzodiazepines Scrn Urine Cocaine Screen U Marijuana (THC) Screen Ethyl Alcohol 10/03/22 10/03/22 10/03/22 05:29 05:29 05:29 WBC 8.9 RBC 4.29 Hgb 8.6 L Hct 30.4 L MCV 70.9 L MCH 20.0 L MCHC 28.3 L RDW 20.8 H Plt Count 329 MPV 9.7 Immature Gran % (Auto) 0.7 H Neut % (Auto) 65.0 Lymph % (Auto) 21.5 [place] % (Auto) 6.9 Eos % (Auto) 5.2 H Baso % (Auto) 0.7 Lymph # (Auto) 1.9 [place] # (Auto) 0.6 Eos # (Auto) 0.5 H Baso # (Auto) 0.1 Abs Immat Gran (auto) 0.06 H Absolute Neuts (auto) 5.8 Absolute Nucleated RBC 0.000 Nucleated RBC % (auto) 0.0 Sodium 138 Potassium 4.0 Chloride 105 Carbon Dioxide 22 Anion Gap 15 BUN 17 H Creatinine 1.35 Estim Creat Clear Calc 88.6 Estimated GFR 43 Random Glucose 178 H Calcium 9.3 Iron TIBC % Saturation Unsat Iron Binding Troponin I High Sens 8.3 B-Natriuretic Peptide Beta HCG, Quant Urine Color Urine Appearance Urine pH Ur Specific Christine Urine Protein Urine Glucose (UA) Urine Ketones Urine Blood Urine Nitrite Ur Leukocyte Esterase Urine RBC Urine WBC Ur Squamous Epith Cells Urine Bacteria Hyaline Casts Urine Opiates Screen Urine Fentanyl Screen Ur Barbiturates Screen Ur Phencyclidine Scrn Ur Amphetamines Screen U Benzodiazepines Scrn Urine Cocaine Screen U Marijuana (THC) Screen Ethyl Alcohol Imaging Radiologist's impression: Impressions Chest CTA 10/02/22 16:44 IMPRESSION: 1. Evaluation is somewhat limited due to patient body habitus and motion. However, accounting for this limitation, no discrete central pulmonary emboli nor large segmental pulmonary emboli are seen. 2. No evidence of increased right-sided heart pressures. 3. Focal airspace opacities in the lingula could be related with an infectious or inflammatory process of the small airways. Recommend a short-term follow-up chest CT to ensure resolution. 4. Hepatic steatosis. VTE: negative Assessment and Plan (1) Hypertensive urgency: Status: Acute (2) Abnormal ECG: Status: Acute (3) Chest pain: Status: Acute Plan EKG with underlying sinus rhythm at 94/Min; ST-T changes in lateral leads with T inversion. No prior EKG for comparison. Changes could be related to longstanding hypertension. Ischemia cannot be excluded completely. In the labs, hemoglobin is 8.6. Low MCV. Creatinine is 1.35. Cardiac BNP 73. High sensitivity troponins of 13.1, 14.3 and 8.3-within range. In the chest CT scan, focal airspace opacities in the lingula. Possible infectious/inflammatory process of small airways. Overall, uncontrolled hypertension, abnormal EKG but negative troponins. EKG changes could be from hypertension. We will start with an echocardiogram for cardiac function. For hypertension itself, increase the losartan dosing from 50 mg 100 mg. Amlodipine 10 mg daily. Beyond that, may need a diuretic were spironolactone versus Coreg. To be decided. Eventually, consider ischemic workup but she does not have any evidence of ACS at this time. Hence could be done as an outpatient. Her weight will be an issue for stress testing. Discussed with Dr. Perdue. Time Spent With Patient Time: Total time managing care of this patient today ____ minutes. Procedures Date of Service Date of Service: 10/03/22
[2022-10-03] MEDS: predniSONE 20 MG TABLET 40 MG PO (10:22)
--- NOTE | 2022-10-03 10:25 | PC.NURSE ---
medication administered per provider order. notified admitting provider about pt's request for pain medication that is not tylenol. awaiting for response.
[2022-10-03] MEDS: TiZANidine HCL 4 MG TABLET PO ×3 (11:05→20:42)
[2022-10-03] MEDS: Enoxaparin Sodium 40 MG/0.4 ML SYRINGE SUBCUT ×2 (11:05→20:42)
[2022-10-03] MEDS: SUMAtriptan succinate 50 MG TABLET PO (11:05)
--- NOTE | 2022-10-03 11:08 | PC.NURSE ---
medication administered per provider order.
--- NOTE | 2022-10-03 11:48 | PC.NURSE ---
called [facility] to give report, RN was unavailable to take report - told person on the phone to have them tigertext me when they are available for me to give report.
--- NOTE | 2022-10-03 12:06 | PC.NURSE ---
report given to RN on [facility].
--- NOTE | 2022-10-03 14:32 | HO.PM.IMPN ---
Subjective Subjective Date of Service: 10/03/22 Interval History: Chest tightness feels like asthma attack to her No sputum production Review of Systems Review of Systems: Yes all other systems are reviewed and are negative Physical Exam Vital Signs: Vital Signs: Last Vital Signs Temp 97.0 F 10/03/22 13:16 Pulse 77 10/03/22 13:16 Resp 18 10/03/22 13:16 BP 141/90 H 10/03/22 13:16 Pulse Ox 95 10/03/22 13:16 O2 Del Method Room Air 10/03/22 13:16 O2 Flow Rate 4 10/03/22 07:52 BMI result Body Mass Index 68.8 Gen: in no acute distress HEENT: sclera anicteric, moist mucus membranes Neck: supple Lungs: diminished Heart: regular rate and rhythm, no murmurs Abd: soft, non-tender, non-distended, morbidly obese Ext: no edema Skin: warm/well-perfused Neuro: alert and oriented x3, no focal findings Psych: appropriate affect Objective Data Active Medications Acetaminophen (Acetaminophen 325 Mg Tablet) 650 mg PO Q6H PRN PRN Reason: Pain, Mild (Pain Scale 1-3) Last Admin: 10/03/22 05:50 Dose: 650 mg Documented By: TOOTIE Albuterol/Ipratropium (Albuterol/Iprat 2.5/0.5mg 3 Ml Ampul.Neb) 3 ml INHALE RQ4H WHILE AWAKE [facility] Last Admin: 10/03/22 11:42 Dose: 3 ml Documented By: MAME Albuterol/Ipratropium (Albuterol/Iprat 2.5/0.5mg 3 Ml Ampul.Neb) 3 ml INHALE Q4H PRN PRN Reason: Wheezing Amlodipine Besylate (Amlodipine Besylate 5 Mg Tablet) 5 mg PO DAILY [facility]; Protocol Last Admin: 10/03/22 09:22 Dose: 5 mg Documented By: NICANOR Enoxaparin Sodium (Enoxaparin Sodium 40 Mg/0.4 Ml Syringe) 40 mg SUBCUT Q12H [facility] Last Admin: 10/03/22 11:05 Dose: 40 mg Documented By: NICANOR Fluticasone/Vilanterol (Fluticasone/Vilanterol 200/25 Blst.W.Dev) 1 puff INHALE RDAILY [facility] Last Admin: 10/03/22 09:45 Dose: Not Given Documented By: MAME Non-Admin Reason: Med unavailable, [facility] aware Losartan Potassium (Losartan Potassium 50 Mg Tablet) 100 mg PO DAILY [facility]; Protocol Last Admin: 10/03/22 09:23 Dose: 100 mg Documented By: NICANOR Melatonin (Melatonin 3 Mg Tablet) 6 mg PO BEDTIME PRN PRN Reason: Insomnia Last Admin: 10/02/22 23:28 Dose: 6 mg Documented By: TOOTIE Omeprazole (Omeprazole 20 Mg Capsule.Dr) 20 mg PO DAILY@0630 [facility] Ondansetron HCl (Ondansetron Hcl 4 Mg/2 Ml Vial) 4 mg IVPUSH Q8H PRN PRN Reason: Nausea and Vomiting Pharmacy Consult (Consult Rx Perform Med Rec) 1 each MISCELLANE ONCE PRN PRN Reason: Consult order Prednisone (Prednisone 20 Mg Tablet) 40 mg PO DAILY [facility] Last Admin: 10/03/22 10:22 Dose: 40 mg Documented By: NICANOR Sodium Chloride (0.9 % Sodium Chloride Flush 3 Ml Syringe) 3 ml IVFLUSH QSHIFT [facility] Last Admin: 10/03/22 07:41 Dose: Not Given Documented By: SHABBIR Non-Admin Reason: Patient Asleep Tizanidine HCl (Tizanidine Hcl 4 Mg Tablet) 4 mg PO TID [facility] Last Admin: 10/03/22 14:22 Dose: 4 mg Documented By: GARRY Labs 10/03/22 05:29 10/03/22 05:29 Labs: Laboratory Results - last 24 hr 10/02/22 10/02/22 10/02/22 15:55 15:55 15:55 MCV 71.8 L MCH 20.2 L MCHC 28.2 L RDW 20.9 H Plt Count 322 MPV 9.2 L Immature Gran % (Auto) 0.7 H Neut % (Auto) 68.7 Lymph % (Auto) 18.5 L [place] % (Auto) 6.7 Eos % (Auto) 4.9 H Baso % (Auto) 0.5 Lymph # (Auto) 1.9 [place] # (Auto) 0.7 Eos # (Auto) 0.5 H Baso # (Auto) 0.1 Abs Immat Gran (auto) 0.07 H Absolute Neuts (auto) 7.0 Absolute Nucleated RBC 0.000 Nucleated RBC % (auto) 0.0 Anion Gap Estim Creat Clear Calc Estimated GFR Random Glucose Calcium Iron TIBC % Saturation Unsat Iron Binding B-Natriuretic Peptide 73 Beta HCG, Quant < 2 Urine Color Urine Appearance Urine pH Ur Specific [place] Urine Protein Urine Glucose (UA) Urine Ketones Urine Blood Urine Nitrite Ur Leukocyte Esterase Urine RBC Urine WBC Ur Squamous Epith Cells Urine Bacteria Hyaline Casts Urine Opiates Screen Urine Fentanyl Screen Ur Barbiturates Screen Ur Phencyclidine Scrn Ur Amphetamines Screen U Benzodiazepines Scrn Urine Cocaine Screen U Marijuana (THC) Screen Ethyl Alcohol 10/02/22 10/02/22 10/02/22 15:56 19:26 19:26 MCV MCH MCHC RDW Plt Count MPV Immature Gran % (Auto) Neut % (Auto) Lymph % (Auto) [place] % (Auto) Eos % (Auto) Baso % (Auto) Lymph # (Auto) [place] # (Auto) Eos # (Auto) Baso # (Auto) Abs Immat Gran (auto) Absolute Neuts (auto) Absolute Nucleated RBC Nucleated RBC % (auto) Anion Gap 17 Estim Creat Clear Calc 96.5 Estimated GFR 47 Random Glucose 161 H Calcium 9.5 Iron TIBC % Saturation Unsat Iron Binding B-Natriuretic Peptide Beta HCG, Quant Urine Color Yellow Urine Appearance Clear Urine pH 6.0 Ur Specific [place] >= 1.030 H Urine Protein 100 (2+) H Urine Glucose (UA) 100 H Urine Ketones Negative Urine Blood Negative Urine Nitrite Negative Ur Leukocyte Esterase Negative Urine RBC 3-5 H Urine WBC 11-20 H Ur Squamous Epith Cells >20 Urine Bacteria 2+ Hyaline Casts 3-5 Urine Opiates Screen Not Detected Urine Fentanyl Screen Not Detected Ur Barbiturates Screen Not Detected Ur Phencyclidine Scrn Not Detected Ur Amphetamines Screen Not Detected U Benzodiazepines Scrn Not Detected Urine Cocaine Screen Not Detected U Marijuana (THC) Screen Not Detected Ethyl Alcohol < 10 10/02/22 10/03/22 10/03/22 19:47 05:29 05:29 MCV 70.9 L MCH 20.0 L MCHC 28.3 L RDW 20.8 H Plt Count 329 MPV 9.7 Immature Gran % (Auto) 0.7 H Neut % (Auto) 65.0 Lymph % (Auto) 21.5 [place] % (Auto) 6.9 Eos % (Auto) 5.2 H Baso % (Auto) 0.7 Lymph # (Auto) 1.9 [place] # (Auto) 0.6 Eos # (Auto) 0.5 H Baso # (Auto) 0.1 Abs Immat Gran (auto) 0.06 H Absolute Neuts (auto) 5.8 Absolute Nucleated RBC 0.000 Nucleated RBC % (auto) 0.0 Anion Gap 15 Estim Creat Clear Calc 88.6 Estimated GFR 43 Random Glucose 178 H Calcium 9.3 Iron 25 L TIBC 354 % Saturation 7 L Unsat Iron Binding 329 B-Natriuretic Peptide Beta HCG, Quant Urine Color Urine Appearance Urine pH Ur Specific [place] Urine Protein Urine Glucose (UA) Urine Ketones Urine Blood Urine Nitrite Ur Leukocyte Esterase Urine RBC Urine WBC Ur Squamous Epith Cells Urine Bacteria Hyaline Casts Urine Opiates Screen Urine Fentanyl Screen Ur Barbiturates Screen Ur Phencyclidine Scrn Ur Amphetamines Screen U Benzodiazepines Scrn Urine Cocaine Screen U Marijuana (THC) Screen Ethyl Alcohol Assessment and Plan (1) Chest pain: Status: Acute Plan d2 42yo F with morbid obesity + HTN + asthma presenting with chest pressure and dyspnea chest pain - suspect asthma rather than ACS. Trops negative and TTE without WMAs. EKG did show lateral TWIs but no prior for comparison. Could be due to HTN. Outpt ischemic workup per Cardiology HTN urgency - losartan- increase to 100 mg/d, add amlodipine 10 mg/d asthma exacerbation - prednisone burst, standing/prn nebs, controller inhalers LOGAN - FOBT, start Fe repletion RENETTA - CPAP at night [noncompliant at home] GERD - PPI chronic back pain - tizanidine VTE ppx - LMWH dispo - home possibly tomorrow In my clinical judgment, the patient requires continued inpatient hospitalization for the following reasons: BP control, asthma exacerbation Time Spent With Patient Time: Total time managing care of this patient today ___35_ minutes. Quality Stroke Does the patient have a stroke diagnosis?: No VTE Prior VTE?: No VTE Risk Level:: Medical - moderate - high VTE Device Contraindication: Treatment Not Indicated VTE Drug Contraindication: N/A - Med Ordered
[2022-10-03 16:16] LABS: Adenovirus PCR Not Detected (Not Detect.); Bordetella parapertussis PCR Not Detected (Not Detect.); Bordetella pertussis PCR Not Detected (Not Detect.); Chlamydia pneumoniae PCR Not Detected (Not Detect.); Coronavirus 229E PCR Not Detected (Not Detect.); Coronavirus HKU1 PCR Not Detected (Not Detect.); Coronavirus NL63 PCR Not Detected (Not Detect.); Coronavirus OC43 PCR Not Detected (Not Detect.); Human metapneumovirus PCR Not Detected (Not Detect.); Influenza A PCR Not Detected (Not Detect.); Influenza B PCR Not Detected (Not Detect.); Mycoplasma pneumoniae PCR Not Detected (Not Detect.); Parainfluenza 1 PCR Not Detected (Not Detect.); Parainfluenza 2 PCR Not Detected (Not Detect.); Parainfluenza 3 PCR Not Detected (Not Detect.); Parainfluenza 4 PCR Not Detected (Not Detect.); RSV PCR Not Detected (Not Detect.); Rhino/Enterovirus PCR Not Detected (Not Detect.); SARS-CoV-2 PCR Not Detected (Not Detect.)
[2022-10-03] MEDS: Ferrous Sulfate 324 MG TABLET.DR PO (16:17)
[2022-10-03] MEDS: 0.9 % Sodium Chloride Flush 3 ML SYRINGE IVFLUSH ×2 (16:17→20:45)
[2022-10-03 17:27] LABS: Procalcitonin 0.05 ng/mL
[2022-10-04] VITALS (7 sets, daily range): BP systolic 138–169; BP diastolic 73–89; PULSE 64–92; RESP 18–20; TEMP 36.1–36.5; O2SAT 95–99
[2022-10-04 03:48] LABS: Estimated Average Glucose 183 mg/dL
[2022-10-04] MEDS: Omeprazole 20 MG CAPSULE.DR PO (06:17)
[2022-10-04 06:27] LABS: Hematocrit 31.2 % (37.0-47.0); Mean Corpuscular HGB Conc 28.8 g/dl (31.0-35.0); Mean Corpuscular Hemoglobin 20.5 pg (27.0-33.0); Mean Corpuscular Volume 71.1 fL (80.0-98.0); Mean Platelet Volume 9.5 fL (9.4-12.3); Platelet Count 304 X10*3/uL (160-400); Red Blood Count 4.39 X10*6/uL (4.20-5.50); Red Cell Distribution Width 20.8 % (11.0-16.0); White Blood Count 10.1 X10*3/uL (4.8-10.8)
[2022-10-04 06:46] LABS: Anion Gap 16 (12-20); Blood Urea Nitrogen 23 mg/dL (9-16); Calcium 9.5 mg/dL (8.4-10.2); Carbon Dioxide 23 mmol/L (22-29); Chloride 102 mmol/L (96-108); Cholesterol 218 mg/dL; Creatinine Clr Calc Pharmacy 79.7; Estimated Glomerular Filt Rate 38; Glucose Random 195 mg/dL (60-115); HDL Cholesterol 31 mg/dL; LDL Cholesterol Calculated 158 mg/dl; Potassium 4.2 mmol/L (3.3-5.1); Sodium 137 mmol/L (135-145); Triglycerides 146 mg/dL
[2022-10-04 07:24] LABS: Reflex LDLD? No
[2022-10-04] MEDS: amLODIPine Besylate 10 MG TABLET PO (08:05)
[2022-10-04] MEDS: Ferrous Sulfate 324 MG TABLET.DR PO (08:05)
[2022-10-04] MEDS: predniSONE 20 MG TABLET 40 MG PO (08:05)
[2022-10-04] MEDS: TiZANidine HCL 4 MG TABLET PO ×3 (08:05→19:31)
[2022-10-04] MEDS: Enoxaparin Sodium 40 MG/0.4 ML SYRINGE SUBCUT ×2 (08:06→19:31)
[2022-10-04] MEDS: Losartan Potassium 50 MG TABLET 100 MG PO (08:06)
[2022-10-04 08:08] LABS: Glucose, Whole Blood 157 mg/dL (60-115)
[2022-10-04] MEDS: 0.9 % Sodium Chloride Flush 3 ML SYRINGE IVFLUSH ×3 (08:08→19:33)
--- NOTE | 2022-10-04 10:41 | HO.PM.IMPN ---
Subjective Subjective Date of Service: 10/04/22 Interval History: chest pressure resolved CPAP machine broken new dx DM2 pt did not tolerate MTF in past due to kidney pain but has appt with PCP in next 1-2 wk to discuss Ozempic for weight loss which would also help with DM Review of Systems Review of Systems: Yes all other systems are reviewed and are negative Physical Exam Vital Signs: Vital Signs: Last Vital Signs Temp 97.1 F 10/04/22 07:18 Pulse 78 10/04/22 07:18 Resp 20 10/04/22 07:18 BP 146/83 H 10/04/22 07:18 Pulse Ox 97 10/04/22 07:18 O2 Del Method CPAP 10/04/22 07:18 O2 Flow Rate 4 10/03/22 07:52 BMI result Body Mass Index 68.8 Gen: in no acute distress HEENT: sclera anicteric, moist mucus membranes Neck: supple Lungs: clear to auscultation bilaterally Heart: regular rate and rhythm, no murmurs Abd: soft, non-tender, non-distended, morbidly obese Ext: no edema Skin: warm/well-perfused Neuro: alert and oriented x3, no focal findings Psych: appropriate affect Objective Data Active Medications Acetaminophen (Acetaminophen 325 Mg Tablet) 650 mg PO Q6H PRN PRN Reason: Pain, Mild (Pain Scale 1-3) Last Admin: 10/03/22 05:50 Dose: 650 mg Documented By: TOOTIE Albuterol/Ipratropium (Albuterol/Iprat 2.5/0.5mg 3 Ml Ampul.Neb) 3 ml INHALE RQ4H WHILE AWAKE [facility] Last Admin: 10/04/22 07:15 Dose: Not Given Documented By: CONOR Non-Admin Reason: Patient Asleep Albuterol/Ipratropium (Albuterol/Iprat 2.5/0.5mg 3 Ml Ampul.Neb) 3 ml INHALE Q4H PRN PRN Reason: Wheezing Amlodipine Besylate (Amlodipine Besylate 10 Mg Tablet) 10 mg PO DAILY [facility]; Protocol Last Admin: 10/04/22 08:05 Dose: 10 mg Documented By: ALICJA Atorvastatin Calcium (Atorvastatin Calcium 80 Mg Tablet) 80 mg PO BEDTIME [facility] Dextrose (Dextrose 50 % 25 Gm/50 Ml Syringe) 25 gm IVPUSH Q15M PRN; Protocol PRN Reason: per Hypoglycemia Standing Ord. Enoxaparin Sodium (Enoxaparin Sodium 40 Mg/0.4 Ml Syringe) 40 mg SUBCUT Q12H [facility] Last Admin: 10/04/22 08:06 Dose: 40 mg Documented By: ALICJA Ferrous Sulfate (Ferrous Sulfate 324 Mg Tablet.) 324 mg PO DAILY [facility] Last Admin: 10/04/22 08:05 Dose: 324 mg Documented By: ALICJA Fluticasone/Vilanterol (Fluticasone/Vilanterol 200/25 Blst.W.Dev) 1 puff INHALE RDAILY [facility] Last Admin: 10/04/22 07:16 Dose: Not Given Documented By: CONOR Non-Admin Reason: Med Not Available Glucose (Glucose Gel 15 Gm Gel..Gram.) 15 gm PO Q15M PRN; Protocol PRN Reason: per Hypoglycemia Standing Ord. Insulin Human Lispro (Insulin Lispro 100 Unit/Ml 3 Ml Vial) 0 unit SUBCUT QIDACHS [facility]; Protocol Last Admin: 10/04/22 08:09 Dose: Not Given Documented By: ALICJA Non-Admin Reason: Patient Refused Losartan Potassium (Losartan Potassium 50 Mg Tablet) 100 mg PO DAILY [facility]; Protocol Last Admin: 10/04/22 08:06 Dose: 100 mg Documented By: ALICJA Melatonin (Melatonin 3 Mg Tablet) 6 mg PO BEDTIME PRN PRN Reason: Insomnia Last Admin: 10/02/22 23:28 Dose: 6 mg Documented By: TOOTIE Omeprazole (Omeprazole 20 Mg Capsule.) 20 mg PO DAILY@0630 [facility] Last Admin: 10/04/22 06:17 Dose: 20 mg Documented By: RILEY Ondansetron HCl (Ondansetron Hcl 4 Mg/2 Ml Vial) 4 mg IVPUSH Q8H PRN PRN Reason: Nausea and Vomiting Pharmacy Consult (Consult Rx Perform Med Rec) 1 each MISCELLANE ONCE PRN PRN Reason: Consult order Prednisone (Prednisone 20 Mg Tablet) 40 mg PO DAILY [facility] Last Admin: 10/04/22 08:05 Dose: 40 mg Documented By: ALICJA Sodium Chloride (0.9 % Sodium Chloride Flush 3 Ml Syringe) 3 ml IVFLUSH QSHIFT [facility] Last Admin: 10/04/22 08:08 Dose: 3 ml Documented By: ALICJA Tizanidine HCl (Tizanidine Hcl 4 Mg Tablet) 4 mg PO TID [facility] Last Admin: 10/04/22 08:05 Dose: 4 mg Documented By: ALICJA Labs 10/04/22 05:56 10/04/22 05:56 Labs: Laboratory Results - last 24 hr 10/03/22 10/03/22 10/03/22 05:29 05:29 13:28 MCV MCH MCHC RDW Plt Count MPV Absolute Nucleated RBC Nucleated RBC % (auto) Anion Gap Estim Creat Clear Calc Estimated GFR POC Glucose Random Glucose Estimat Average Glucose 183 Hemoglobin A1c % 8.0 Calcium Triglycerides Cholesterol LDL Cholesterol, Calc HDL Cholesterol Procalcitonin 0.05 Respiratory Panel [place] See Note Adenovirus (Rapid PCR) Not Detected B.pert (TEM-PCR) Not Detected B.parapertussis DNA PCR Not Detected C. pneumoniae DNA (PCR) Not Detected Coronavirus OC43 (PCR) Not Detected Coronavirus HKU1 (PCR) Not Detected Coronavirus 229E (PCR) Not Detected Coronavirus NL63 (PCR) Not Detected Human Metapneumovir PCR Not Detected Influenza A (RT-PCR) Not Detected Influenza B (RT-PCR) Not Detected M. pneumoniae (PCR) Not Detected Parainfluenza 1 (PCR) Not Detected Parainfluenza 2 (PCR) Not Detected Parainfluenza 3 (PCR) Not Detected Parainfluenza 4 (PCR) Not Detected RSV (PCR) Not Detected Entero/Rhino (PCR) Not Detected SARS-CoV-2 RNA (RT-PCR) Not Detected 10/04/22 10/04/22 10/04/22 05:56 05:56 05:56 MCV 71.1 L MCH 20.5 L MCHC 28.8 L RDW 20.8 H Plt Count 304 MPV 9.5 Absolute Nucleated RBC 0.000 Nucleated RBC % (auto) 0.0 Anion Gap 16 Estim Creat Clear Calc 79.7 Estimated GFR 38 POC Glucose Random Glucose 195 H Estimat Average Glucose Hemoglobin A1c % Calcium 9.5 Triglycerides 146 Cholesterol 218 LDL Cholesterol, Calc 158 HDL Cholesterol 31 Procalcitonin Respiratory Panel [place] Adenovirus (Rapid PCR) B.pert (TEM-PCR) B.parapertussis DNA PCR C. pneumoniae DNA (PCR) Coronavirus OC43 (PCR) Coronavirus HKU1 (PCR) Coronavirus 229E (PCR) Coronavirus NL63 (PCR) Human Metapneumovir PCR Influenza A (RT-PCR) Influenza B (RT-PCR) M. pneumoniae (PCR) Parainfluenza 1 (PCR) Parainfluenza 2 (PCR) Parainfluenza 3 (PCR) Parainfluenza 4 (PCR) RSV (PCR) Entero/Rhino (PCR) SARS-CoV-2 RNA (RT-PCR) 10/04/22 08:05 MCV MCH MCHC RDW Plt Count MPV Absolute Nucleated RBC Nucleated RBC % (auto) Anion Gap Estim Creat Clear Calc Estimated GFR POC Glucose 157 H Random Glucose Estimat Average Glucose Hemoglobin A1c % Calcium Triglycerides Cholesterol LDL Cholesterol, Calc HDL Cholesterol Procalcitonin Respiratory Panel [place] Adenovirus (Rapid PCR) B.pert (TEM-PCR) B.parapertussis DNA PCR C. pneumoniae DNA (PCR) Coronavirus OC43 (PCR) Coronavirus HKU1 (PCR) Coronavirus 229E (PCR) Coronavirus NL63 (PCR) Human Metapneumovir PCR Influenza A (RT-PCR) Influenza B (RT-PCR) M. pneumoniae (PCR) Parainfluenza 1 (PCR) Parainfluenza 2 (PCR) Parainfluenza 3 (PCR) Parainfluenza 4 (PCR) RSV (PCR) Entero/Rhino (PCR) SARS-CoV-2 RNA (RT-PCR) TTE 10/03/22 - The left ventricular systolic function is normal.? The ? calculated ejection fraction is 67% by biplane method. ? - No obvious valvular pathology seen on this study.? Assessment and Plan (1) Chest pain: Status: Acute Plan d3 42yo F with morbid obesity + HTN + asthma presenting with chest pressure and dyspnea chest pain - Trops negative and TTE without WMAs. EKG did show lateral TWIs but no prior for comparison; could be due to HTN. Chest pain likely due to asthma exacerbation. Outpt ischemic workup per Cardiology HTN urgency - losartan- increased to 100 mg/d, added amlodipine 10 mg/d renal insufficiency - SCr worse, unknown baseline, suspect due to HTN urgency, will recheck BMP tomorrow asthma exacerbation - prednisone d2/5, standing/prn nebs, controller inhalers. RPP negative LOGAN - FOBT, start Fe repletion HLD - start atorvastatin new dx DM2 - A1c 8. Start GPZ for now [previously intolerant of MTF] and pt had appt with PCP in 1-2 weeks anyways to start Ozempic for weight loss RENETTA - CPAP at night. RT consult to see if can help with getting replacement home machine. GERD - PPI chronic back pain - tizanidine VTE ppx - LMWH dispo - home possibly tomorrow In my clinical judgment, the patient requires continued inpatient hospitalization for the following reasons: BP control, asthma exacerbation, LILIANA Time Spent With Patient Time: Total time managing care of this patient today __35__ minutes. Quality Stroke Does the patient have a stroke diagnosis?: No VTE Prior VTE?: No VTE Risk Level:: Medical - moderate - high VTE Device Contraindication: Treatment Not Indicated VTE Drug Contraindication: N/A - Med Ordered
[2022-10-04] MEDS: glipiZIDE 5 MG TABLET PO ×2 (11:05→16:12)
[2022-10-04 11:57] LABS: Glucose, Whole Blood 410 mg/dL (60-115)
[2022-10-04 11:57] LABS: Glucose, Whole Blood 337 mg/dL (60-115)
[2022-10-04] MEDS: Insulin Lispro 100 UNIT/ML 3 ML VIAL SUBCUT (12:23)
[2022-10-04] MEDS: Butalb/Acetamin/Caff 50/325/40 TABLET 1 TAB PO (12:53)
[2022-10-04] MEDS: Albuterol/Iprat 2.5/0.5MG 3 ML AMPUL.NEB INHALE (14:07)
[2022-10-04 14:26] LABS: Creatinine Urine 91.15 mg/dL; Microalbum/Creatinine Ratio Ur 191.9 ug/mg cr
[2022-10-04 16:18] LABS: Glucose, Whole Blood 175 mg/dL (60-115)
--- NOTE | 2022-10-04 16:46 | PC.NURSE ---
Pt reporting headache unrelieved by APAP, fiorocet ordered and given with good effect. Pt denies chest pain throughout the day. OOB to bathroom and was dyspneic with exertion, prn resp tx given with good effect. Pt hyperglycemic at lunchtime and administered 8u insulin as ordered, aware.
[2022-10-04] MEDS: Atorvastatin Calcium 80 MG TABLET PO (19:31)
[2022-10-04 20:26] LABS: Glucose, Whole Blood 156 mg/dL (60-115)
[2022-10-05] VITALS: BP 117/58; PULSE 78; RESP 20; TEMP 36.5; O2SAT 97
[2022-10-05 04:00] VITALS: BP 132/67; PULSE 76; RESP 20; TEMP 36.2; O2SAT 95
[2022-10-05] MEDS: Omeprazole 20 MG CAPSULE.DR PO (05:30)
[2022-10-05 06:38] LABS: Anion Gap 16 (12-20); Blood Urea Nitrogen 27 mg/dL (9-16); Calcium 9.4 mg/dL (8.4-10.2); Carbon Dioxide 23 mmol/L (22-29); Chloride 103 mmol/L (96-108); Creatinine Clr Calc Pharmacy 82.5; Estimated Glomerular Filt Rate 39; Glucose Random 126 mg/dL (60-115); Potassium 3.7 mmol/L (3.3-5.1); Sodium 138 mmol/L (135-145)
[2022-10-05 07:25] VITALS: BP 147/80; PULSE 74; RESP 18; TEMP 36.4; O2SAT 99
[2022-10-05 07:54] LABS: Glucose, Whole Blood 120 mg/dL (60-115)
[2022-10-05] MEDS: predniSONE 20 MG TABLET 40 MG PO (08:26)
[2022-10-05] MEDS: glipiZIDE 5 MG TABLET PO (08:26)
[2022-10-05] MEDS: TiZANidine HCL 4 MG TABLET PO (08:26)
[2022-10-05] MEDS: Losartan Potassium 50 MG TABLET 100 MG PO (08:26)
[2022-10-05] MEDS: Ferrous Sulfate 324 MG TABLET.DR PO (08:26)
[2022-10-05] MEDS: amLODIPine Besylate 10 MG TABLET PO (08:27)
[2022-10-05] MEDS: Enoxaparin Sodium 40 MG/0.4 ML SYRINGE SUBCUT (08:27)
[2022-10-05] MEDS: 0.9 % Sodium Chloride Flush 3 ML SYRINGE IVFLUSH (08:38)
[2022-10-05] MEDS: Albuterol/Iprat 2.5/0.5MG 3 ML AMPUL.NEB INHALE ×2 (10:51→15:34)
[2022-10-05 10:53] VITALS: PULSE 92; RESP 18; O2SAT 94
[2022-10-05 11:23] VITALS: BP 148/79; PULSE 83; RESP 18; TEMP 36.3; O2SAT 97
[2022-10-05 12:06] LABS: Glucose, Whole Blood 198 mg/dL (60-115)
[2022-10-05] MEDS: Insulin Lispro 100 UNIT/ML 3 ML VIAL SUBCUT (12:19)
--- NOTE | 2022-10-05 12:24 | PM.PNCARD ---
Subjective Subjective Date of Service: 10/05/22 Interval history: She states that she if feeling fine. Does not have any chest tightness, discomfort or in fact any other symptoms. Review of Systems Review of Systems Yes all other systems are reviewed and are negative Constitutional: Reports as per HPI and Reports no additional constitutional complaints Eyes: Reports as per HPI and Denies no additional eye complaints Denies system reviewed and no additional complaints, except as documented and Reports as per HPI Cardiovascular: Reports as per HPI, Reports no additional cardiovascular complaints, Denies acrocyanosis, Denies cool extremities, Denies chest pain, Denies leg edema, Denies lightheadedness, Denies palpitations and Denies dyspnea Respiratory: Reports as per HPI, Denies no additional respiratory complaints and Denies dyspnea Gastrointestinal: Reports as per HPI and Denies no additional gastrointestinal complaints Genitourinary: Reports as per HPI Musculoskeletal: Reports no additional musculoskeletal complaints and Reports as per HPI Skin/Breast: Reports system reviewed and no additional complaints, except as docu Reports system reviewed and no additional complaints, except as documented and Reports as per HPI Psychiatric: Reports no additional psychiatric complaints and Reports as per HPI Endocrine: Reports no additional endocrine complaints, Reports as per HPI and Denies palpitations Hematologic/Lymphatic: Reports no additional hematologic/lymphatic complaints and Reports as per HPI Allergic/Immunologic: Reports no additional allergic/immunologic complaints and Reports as per HPI Physical Exam Vital Signs: Last Vital Signs Temp 97.3 F 10/05/22 11:23 Pulse 83 10/05/22 11:23 Resp 18 10/05/22 11:23 BP 148/79 H 10/05/22 11:23 Pulse Ox 97 10/05/22 11:23 O2 Del Method Room Air 10/05/22 11:23 O2 Flow Rate 4 10/03/22 07:52 BMI result Body Mass Index 68.8 Const General: comfortable and no acute distress Orientation/consciousness: patient oriented x3 HEENT Other: Unremarkable Head: Yes normal to inspection Neck Neck: Yes normal visual inspection Chest Chest palpation & inspection: normal inspection of the chest Resp Auscultation: clear to auscultation bilaterally Cardio Palpation: normal PMI Heart sounds: S1 normal heart sound present, S2 normal heart sound present, no gallops, no murmurs and no rubs GI Palpation (GI): Soft to palpation Back/Spine/Pelvis Other: unremarkable Skin General skin exam: no rashes or lesions noted Neuro General: patient oriented x3 Extrem General: Yes normal to inspection Psych Mental Status: mental status grossly normal Objective Labs and Meds 10/04/22 05:56 10/05/22 05:37 Lab results: Laboratory Results - last 24 hr 10/04/22 10/04/22 10/04/22 13:55 16:04 20:17 Sodium Potassium Chloride Carbon Dioxide Anion Gap BUN Creatinine Estim Creat Clear Calc Estimated GFR POC Glucose 175 H 156 H Random Glucose Calcium Urine Creatinine 91.15 Urine Microalbumin 175.0 Microalb/Creat Ratio 191.9 10/05/22 10/05/22 10/05/22 05:37 07:27 11:26 Sodium 138 Potassium 3.7 Chloride 103 Carbon Dioxide 23 Anion Gap 16 BUN 27 H Creatinine 1.45 H Estim Creat Clear Calc 82.5 Estimated GFR 39 POC Glucose 120 H 198 H Random Glucose 126 H Calcium 9.4 Urine Creatinine Urine Microalbumin Microalb/Creat Ratio Progress Note: A&P Assessment and plan (1) Hypertensive urgency: Status: Acute (2) Abnormal ECG: Status: Acute (3) Morbid obesity: Status: Acute Plan Echocardiogram with preserved LVEF, no wall motion abnormalities. At least moderate concentric left ventricular hypertrophy. High sensitivity troponins are unremarkable. Cardiac BNP is also unremarkable. Overall, poorly controlled hypertension and obesity likely plays a major role. Blood pressure seems better than before. Asthma type symptoms improved with steroids. No further inpatient workup required from cardiac. Can arrange follow-up. Otherwise, with regard to obesity, will need to be addressed as an outpatient. Consider bariatric referral. Discussed with Dr. Perdue Time Spent With Patient Time: Total time managing care of this patient today 45 minutes. This includes time spent in review of chart, laboratory data, imaging studies, review of telemetry, counseling patient, discussion with hospitalist, RN, documentation, coordination of care. Progress Note: Quality Stroke Does the patient have a stroke diagnosis?: No Procedures Date of Service Date of Service: 10/05/22
--- NOTE | 2022-10-05 13:25 | PM.DS ---
DS: Providers Provider Date of Service: 10/05/22 Date of admission: 10/02/22 20:43 Date of discharge: 10/05/22 Primary care physician: Calderon Goel MD Consults: 10/02/22 20:43 Consult to Cardiology Routine Consulting Provider: [facility] Reason for consultation: chest pain Has provider been notified: Yes DS: Diagnosis Discharge Diagnosis (1) Hypertensive urgency: Status: Acute (2) Abnormal ECG: Status: Acute (3) Morbid obesity: Status: Acute (4) Dyslipidemia: Status: Acute (5) New onset type 2 diabetes mellitus: Status: Acute (6) Microalbuminuria: Status: Acute (7) Chest pain: Status: Acute DS: Summary Hospital Course Hospital Course: from admission H+P, 10/03/22, by hospitalist Veronica Faye MD: This is a 42-year-old female with pertinent history of essential hypertension, chronic back pain, gastroesophageal reflux disease who presents to the emergency department for evaluation of chest pain and dyspnea.? Patient states she has had intermittent substernal chest discomfort that has been ongoing for a while.? It is worse with exertion but does not relieve at rest.? Does not tried nitroglycerin.? It radiates to the left arm and sometimes to the back.? No sweating, nausea associated with the pain.? No history of CAD.? Patient states he also has dyspnea, worse with exertion that has been ongoing for a while.? No cough, fever, chills or wheezing.? Patient denies palpitations, abdominal pain, changes in urinary or bowel habits.? She states he only takes losartan for high blood pressure.? Former smoker.? Admits that she does have RENETTA but does not use CPAP at home In the emergency department, troponin was found to be negative but EKG was abnormal.? Cardiology was consulted who requested admission This 42yo F with morbid obesity + HTN + asthma presenting with chest pressure and dyspnea was admitted to the telemetry unit. Hospital course by problem: chest pain - Serial troponins negative and echocardiography with normal LVEF without wall motion abnormalities.? EKG did show lateral TWIs but no prior for comparison; could have been due to HTN.? Chest pain likely due to asthma exacerbation and resolved with treatment of this.? Cardiology consulted and will follow as outpatient; possible stress testing as outpatient. HTN urgency - Losartan ncreased to 100 mg/d and added amlodipine 10 mg/d. asthma exacerbation - Got 3 days of prednisone along with nebulzied bronchodilators. Chest pressure resolved. Discharged on 2 more days of prednisone. iron deficiency anemia - Prescribed iron repletion hyperlipidemia - Started atorvastatin new dx DM2 - A1c 8.? Started GPZ for now [previously intolerant of MTF] and pt had appt with PCP in 1-2 weeks anyways to start Ozempic for weight loss. Noted to have microalbuminuria. ARB dose was increased as above. RENETTA - Provided CPAP in the hospital . Her home CPAP machine is broken and she can't get in to her usual sleep medicine specialist until December. She was referred to [facility] and [facility], whichever she can get an appointment with first. Time Spent with Patient Time attestation: Total time managing care of this patient today __45__ minutes. Discharge coordination time: Greater than 30 minutes Quality: Safe Use of Opioids Does Pt have an Active Cancer Diagnosis on the Problem List?: No Quality: Stroke Does the patient have a stroke diagnosis?: No Physical Exam Vital Signs: Vital Signs: Last Vital Signs Temp 97.3 F 10/05/22 11:23 Pulse 83 10/05/22 11:23 Resp 18 10/05/22 11:23 BP 148/79 H 10/05/22 11:23 Pulse Ox 97 10/05/22 11:23 O2 Del Method Room Air 10/05/22 11:23 O2 Flow Rate 4 10/03/22 07:52 BMI result Body Mass Index 68.8 Gen: in no acute distress HEENT: sclera anicteric, moist mucus membranes Neck: supple Lungs: clear to auscultation bilaterally Heart: regular rate and rhythm, no murmurs Abd: soft, non-tender, non-distended, obese Ext: no edema Skin: warm/well-perfused Neuro: alert and oriented x3, no focal findings Psych: appropriate affect DS: Data Data Completed and Pending Completed studies during hospitalization [Text1]: Laboratory Results WBC 10.1 X10*3/uL (4.8-10.8) 10/04/22 05:56 RBC 4.39 X10*6/uL (4.20-5.50) 10/04/22 05:56 Hgb 9.0 g/dl (12.0-16.0) L 10/04/22 05:56 Hct 31.2 % (37.0-47.0) L 10/04/22 05:56 MCV 71.1 fL (80.0-98.0) L 10/04/22 05:56 MCH 20.5 pg (27.0-33.0) L 10/04/22 05:56 MCHC 28.8 g/dl (31.0-35.0) L 10/04/22 05:56 RDW 20.8 % (11.0-16.0) H 10/04/22 05:56 Plt Count 304 X10*3/uL (160-400) 10/04/22 05:56 MPV 9.5 fL (9.4-12.3) 10/04/22 05:56 Immature Gran % (Auto) 0.7 % (0.0-0.4) H 10/03/22 05:29 Neut % (Auto) 65.0 % (45-73) 10/03/22 05:29 Lymph % (Auto) 21.5 % (20-40) 10/03/22 05:29 [place] % (Auto) 6.9 % (2-11) 10/03/22 05:29 Eos % (Auto) 5.2 % (0-4) H 10/03/22 05:29 Baso % (Auto) 0.7 % (0-2) 10/03/22 05:29 Lymph # (Auto) 1.9 X10*3/uL (1.2-4.9) 10/03/22 05:29 [place] # (Auto) 0.6 X10*3/uL (0.1-1.2) 10/03/22 05:29 Eos # (Auto) 0.5 X10*3/uL (0.0-0.4) H 10/03/22 05:29 Baso # (Auto) 0.1 X10*3/uL (0.0-0.2) 10/03/22 05:29 Abs Immat Gran (auto) 0.06 X10*3/uL (0.00-0.03) H 10/03/22 05:29 Absolute Neuts (auto) 5.8 x10*3/uL (2.0-8.3) 10/03/22 05:29 Absolute Nucleated RBC 0.000 X10*3/uL (0.0-0.012) 10/04/22 05:56 Nucleated RBC % (auto) 0.0 /100WBC (0.0-0.2) 10/04/22 05:56 Sodium 138 mmol/L (135-145) 10/05/22 05:37 Potassium 3.7 mmol/L (3.3-5.1) 10/05/22 05:37 Chloride 103 mmol/L (96-108) 10/05/22 05:37 Carbon Dioxide 23 mmol/L (22-29) 10/05/22 05:37 Anion Gap 16 (12-20) 10/05/22 05:37 BUN 27 mg/dL (9-16) H 10/05/22 05:37 Creatinine 1.45 mg/dL (0.5-1.4) H 10/05/22 05:37 Estim Creat Clear Calc 82.5 10/05/22 05:37 Estimated GFR 39 10/05/22 05:37 POC Glucose 198 mg/dL (60-115) H 10/05/22 11:26 Random Glucose 126 mg/dL (60-115) H 10/05/22 05:37 Estimat Average Glucose 183 mg/dL 10/03/22 05:29 Hemoglobin A1c % 8.0 % 10/03/22 05:29 Calcium 9.4 mg/dL (8.4-10.2) 10/05/22 05:37 Iron 25 mcg/dL (30-160) L 10/02/22 19:47 TIBC 354 mcg/dL (228-428) 10/02/22 19:47 % Saturation 7 % (15-50) L 10/02/22 19:47 Unsat Iron Binding 329 ug/dL 10/02/22 19:47 Troponin I High Sens 8.3 ng/L (<3.5-17.0) 10/03/22 05:29 B-Natriuretic Peptide 73 pg/mL (<100) 10/02/22 15:55 Triglycerides 146 mg/dL 10/04/22 05:56 Cholesterol 218 mg/dL 10/04/22 05:56 LDL Cholesterol, Calc 158 mg/dl 10/04/22 05:56 HDL Cholesterol 31 mg/dL 10/04/22 05:56 Procalcitonin 0.05 ng/mL 10/03/22 05:29 Beta HCG, Quant < 2 mIU/mL 10/02/22 15:55 Urine Color Yellow 10/02/22 19:26 Urine Appearance Clear 10/02/22 19:26 Urine pH 6.0 (5.0-9.0) 10/02/22 19:26 Ur Specific [place] >= 1.030 (1.005-1.025) H 10/02/22 19:26 Urine Protein 100 (2+) mg/dL (Neg-Trace) H 10/02/22 19:26 Urine Glucose (UA) 100 mg/dL (Negative) H 10/02/22 19:26 Urine Ketones Negative mg/dL (Negative) 10/02/22 19: Urine Blood Negative (Negative) 10/02/22 19:26 Urine Nitrite Negative (Negative) 10/02/22 19:26 Ur Leukocyte Esterase Negative (Negative) 10/02/22 19:26 Urine RBC 3-5 /HPF (0-2) H 10/02/22 19:26 Urine WBC 11-20 /HPF (0-5) H 10/02/22 19:26 Ur Squamous Epith Cells >20 /HPF (0-2) 10/02/22 19:26 Urine Bacteria 2+ (None Seen) 10/02/22 19:26 Hyaline Casts 3-5 /LPF (0-2) 10/02/22 19:26 Urine Creatinine 91.15 mg/dL 10/04/22 13:55 Urine Microalbumin 175.0 mg/L 10/04/22 13:55 Microalb/Creat Ratio 191.9 ug/mg cr 10/04/22 13:55 Urine Opiates Screen Not Detected (Not Detect) 10/02/22 19:26 Urine Fentanyl Screen Not Detected (Not Detect) 10/02/22 19:26 Ur Barbiturates Screen Not Detected (Not Detect) 10/02/22 19:26 Ur Phencyclidine Scrn Not Detected (Not Detect) 10/02/22 19:26 Ur Amphetamines Screen Not Detected (Not Detect) 10/02/22 19:26 U Benzodiazepines Scrn Not Detected (Not Detect) 10/02/22 19:26 Urine Cocaine Screen Not Detected (Not Detect) 10/02/22 19:26 U Marijuana (THC) Screen Not Detected (Not Detect) 10/02/22 19:26 Ethyl Alcohol < 10 mg/dL 10/02/22 15:56 Respiratory Panel [place] See Note 10/03/22 13:28 Adenovirus (Rapid PCR) Not Detected (Not Detect.) 10/03/22 13:28 B.pert (TEM-PCR) Not Detected (Not Detect.) 10/03/22 13:28 B.parapertussis DNA PCR Not Detected (Not Detect.) 10/03/22 13:28 C. pneumoniae DNA (PCR) Not Detected (Not Detect.) 10/03/22 13:28 Coronavirus OC43 (PCR) Not Detected (Not Detect.) 10/03/22 13:28 Coronavirus HKU1 (PCR) Not Detected (Not Detect.) 10/03/22 13:28 Coronavirus 229E (PCR) Not Detected (Not Detect.) 10/03/22 13:28 Coronavirus NL63 (PCR) Not Detected (Not Detect.) 10/03/22 13:28 Human Metapneumovir PCR Not Detected (Not Detect.) 10/03/22 13:28 Influenza A (RT-PCR) Not Detected (Not Detect.) 10/03/22 13:28 Influenza B (RT-PCR) Not Detected (Not Detect.) 10/03/22 13:28 M. pneumoniae (PCR) Not Detected (Not Detect.) 10/03/22 13:28 Parainfluenza 1 (PCR) Not Detected (Not Detect.) 10/03/22 13:28 Parainfluenza 2 (PCR) Not Detected (Not Detect.) 10/03/22 13:28 Parainfluenza 3 (PCR) Not Detected (Not Detect.) 10/03/22 13:28 Parainfluenza 4 (PCR) Not Detected (Not Detect.) 10/03/22 13:28 RSV (PCR) Not Detected (Not Detect.) 10/03/22 13:28 Entero/Rhino (PCR) Not Detected (Not Detect.) 10/03/22 13:28 SARS-CoV-2 RNA (RT-PCR) Not Detected (Not Detect.) 10/03/22 13:28 Impressions Chest CTA 10/02/22 16:44 IMPRESSION: 1. Evaluation is somewhat limited due to patient body habitus and motion. However, accounting for this limitation, no discrete central pulmonary emboli nor large segmental pulmonary emboli are seen. 2. No evidence of increased right-sided heart pressures. 3. Focal airspace opacities in the lingula could be related with an infectious or inflammatory process of the small airways. Recommend a short-term follow-up chest CT to ensure resolution. 4. Hepatic steatosis. VTE: negative Discharge Plan Discharge Patient Disposition: Home, Self-Care Discharge Diagnosis: asthma exacerbation, chest pain, new-onset type 2 diabetes, hypertensive urgency, hyperlipidemia, RENETTA, iron deficiency anemia Referrals: [facility] [Provider Group] - 1 Week (For sleep study/RENETTA) [facility] [Provider Group] - 1 Week (For sleep study/RENETTA) Calderon Goel MD [Primary Care Provider] - 1 Week Kevin Roy MD [Physician] - 2 Weeks Discharge Medications: New losartan 50 mg Tablet 100 mg PO DAILY Qty: 30 0RF Protocol: Hold for SBP< HOLD for SBP < : 90 atorvastatin 80 mg Tablet 80 mg PO BEDTIME Qty: 30 0RF prednisone 20 mg Tablet 40 mg PO DAILY Qty: 4 0RF amlodipine 10 mg Tablet 10 mg PO DAILY Qty: 30 0RF Protocol: Hold for SBP< HOLD for SBP < : 90 glipizide 5 mg Tablet 5 mg PO BIDWM Qty: 60 0RF ferrous sulfate 324 mg (65 mg iron) tablet,delayed release (DR/EC) 324 mg PO DAILY Qty: 30 0RF Continued tizanidine 4 mg tablet 4 mg PO TID pantoprazole 40 mg tablet,delayed release (DR/EC) 40 mg PO DAILY@0630 albuterol sulfate [Ventolin HFA] 90 mcg/actuation HFA aerosol inhaler 2 puff INHALATION Q6H budesonide-formoterol [Symbicort] 80-4.5 mcg/actuation HFA aerosol inhaler 2 puff INHALATION BID Discontinued losartan 50 mg tablet 50 mg PO DAILY meloxicam 15 mg tablet 15 mg PO BID acetaminophen [Tylenol] 325 mg Tablet 650 mg PO Q6H PRN (Reason: Pain) Discharge Orders: Discharge Order (Routine); Ordered 10/05/22 Ordered By: Ami Perdue Diet: Diabetic diet Activity on Discharge: As tolerated Stand Alone Forms: Patient Portal Discharge page Care Plan Goals: avoid complications of cardiovascular and metabolic disease Health Concerns: asthma exacerbation, chest pain, new-onset type 2 diabetes, hypertensive urgency, hyperlipidemia, RENETTA, iron deficiency anemia Plan of Treatment: prednisone 40 mg daily x 2 days continue Symbicort and albuterol follow up with [facility] in 2 weeks; consider outpatient stress testing diabetic diet start glipizide 5 mg twice daily discuss Ozempic with your PCP increase losartan from 50 to 100 mg daily add amlodipine 10 mg daily start atorvastatin 80 mg daily new referrals to [facility] or [facility] for repeat sleep study and CPAP take ferrous sulfate 324 mg daily Please follow up with your primary care doctor within 1 week. Return to the hospital if you experience recurrent or worsening symptoms. Assessment: See Discharge Summary.
--- NOTE | 2022-10-05 14:03 | MHC.CM.PN ---
PT WILL DC HOME TODAY WITH NO SERVICES PT TO ARRANGE TRANSPORT
[2022-10-05 15:36] VITALS: PULSE 88; RESP 18; O2SAT 96
--- NOTE | 2022-10-05 16:02 | PC.NURSE ---
Pt discharged to home this afternoon. Pt provided with discharge education able to teach back meds and follow up care. IV removed from right AC cath intact. Off unit in wheelchair to lobby with staff.
== END 2022-10-05 16:00 | disposition home or self-care (01) ==
LOC: HO.ED 20:36 → HO.EDOVER 21:17 → HO.IMC 10-03 11:42
PROVIDERS: Admitting Provider Student in an Organized Health Care Education/Training Program; Emergency Provider Emergency Medicine; PCP Internal Medicine; Visit Provider Family Medicine
DX: J45.901 Unspecified asthma with (acute) exacerbation (principal); I16.0 Hypertensive urgency; I10 Essential (primary) hypertension; R07.9 Chest pain, unspecified; E66.01 Morbid (severe) obesity due to excess calories; E78.5 Hyperlipidemia, unspecified; E11.9 Type 2 diabetes mellitus without complications; D50.8 Other iron deficiency anemias; R80.9 Proteinuria, unspecified; R06.02 Shortness of breath; J44.9 Chronic obstructive pulmonary disease, unspecified; R94.31 Abnormal electrocardiogram [ECG] [EKG]; M54.50 Low back pain, unspecified; Z79.899 Other long term (current) drug therapy; Z87.891 Personal history of nicotine dependence
CPT/HCPCS: 36415; 71275; 80048; 80061; 80307; 81001; 82043; 82947; 83036; 83540; 83880; 84145; 84484; 84702; 85025; 85027; 87086; 87633; 93005; 93306; 94640; 94660; 96360; 96361; 96372; 99222; 99285; J1650; Q9957; Q9967

== ENCOUNTER 2022-10-02 20:43 | Outpatient (BNV) | payer OTHER, SELFPAY | END 2022-10-03 07:00 | PROVIDERS: Admitting Provider Student in an Organized Health Care Education/Training Program; Emergency Provider Emergency Medicine; PCP Internal Medicine; Visit Provider Internal Medicine | DX: R07.9 Chest pain, unspecified (principal) | CPT/HCPCS: 93306 ==

== ENCOUNTER → 2022-10-02 20:43 | Outpatient (BNV) | payer OTHER, SELFPAY | PROVIDERS: Admitting Provider Student in an Organized Health Care Education/Training Program; Emergency Provider Emergency Medicine; PCP Internal Medicine; Visit Provider Student in an Organized Health Care Education/Training Program | DX: R07.9 Chest pain, unspecified (principal) | CPT/HCPCS: 99222; 99232; 99239 ==

== ENCOUNTER → 2022-10-02 20:43 | Outpatient (BNV) | payer OTHER, SELFPAY | PROVIDERS: Admitting Provider Student in an Organized Health Care Education/Training Program; Emergency Provider Emergency Medicine; PCP Internal Medicine; Visit Provider Internal Medicine | DX: I16.0 Hypertensive urgency (principal); R94.31 Abnormal electrocardiogram [ECG] [EKG]; E66.01 Morbid (severe) obesity due to excess calories | CPT/HCPCS: 93010; 99222; 99232 ==

== ENCOUNTER 2023-03-07 10:48 | Emergency (ER) | payer OTHER, SELFPAY ==
--- NOTE | 2023-03-07 11:25 | ED.SKABFB ---
HPI - Skin/Abscess/Foreign Bdy General Chief complaint: Skin/Abscess/Foreign Body Stated complaint: vaginal boil and yeast infection Time Seen by Provider: 03/07/23 13:10 Source: patient Mode of arrival: ambulatory Limitations: no limitations History of Present Illness HPI narrative: Patient is a 42 year old assigned female at with a history of HTN, COPD, and GERD presenting to the emergency department today with vaginal irritation and swelling. Patient states that over the last week she has had vaginal irritation and swelling. Patient denies any dizziness, lightheadedness, abdominal pain, nausea, vomiting, fever, chills, blurry vision, double vision, loss of vision, chest pain, difficulty breathing, shortness of breath, back pain, night sweats, pain with urination, increased urinary frequency, increased urinary urgency, blood in her urine or stool, syncope or a near syncopal episode, recent trauma or falls, bowel incontinence, bladder incontinence, bowel retention, bladder retention, or any other complaints at this time. Related Data Home Medications Medication Instructions Recorded Confirmed albuterol sulfate 90 mcg/actuation 2 puff inhalation Q6H 10/02/22 10/02/22 aerosol inhaler (Ventolin HFA) budesonide-formoterol HFA 80 2 puff inhalation BID 10/02/22 10/02/22 mcg-4.5 mcg/actuation aerosol inhaler (Symbicort) pantoprazole 40 mg tablet,delayed 40 mg PO DAILY@0630 10/02/22 10/02/22 release tizanidine 4 mg tablet 4 mg PO TID 10/02/22 10/02/22 Previous Rx's Medication Instructions Recorded amlodipine 10 mg tablet 10 mg PO DAILY #30 tabs 10/05/22 atorvastatin 80 mg tablet 80 mg PO BEDTIME #30 tabs 10/05/22 ferrous sulfate 324 mg (65 mg 324 mg PO DAILY #30 tabs 10/05/22 iron) tablet,delayed release glipizide 5 mg tablet 5 mg PO BIDWM #60 tabs 10/05/22 losartan 50 mg tablet 100 mg PO DAILY #30 tabs 10/05/22 prednisone 20 mg tablet 40 mg (2 x 20 mg) PO DAILY #4 tabs 10/05/22 cefuroxime axetil 250 mg tablet 250 mg PO BID 7 days #14 tabs 03/07/23 fluconazole 150 mg tablet 150 mg PO Q3D 2 doses #2 tabs 03/07/23 Allergies Allergy/AdvReac Type Severity Reaction Status Date / Time aspirin Allergy Unknown unknown Verified 03/07/23 11:33 Review of Systems Constitutional: Constitutional: Reports no additional constitutional complaints, Denies chills, Denies fever(s) and Denies night sweats Eyes: Eyes: Reports no additional eye complaints, Denies blurry vision, Denies change in vision, Denies diplopia, Denies eye discharge, Denies loss of vision and Denies eye pain ENT: Denies dizziness Cardiovascular: Cardiovascular: Reports no additional cardiovascular complaints, Denies chest pain, Denies lightheadedness, Denies Loss of Consciousness and Denies dyspnea Respiratory: Respiratory: Reports no additional respiratory complaints and Denies dyspnea Gastrointestinal: Gastrointestinal: Reports no additional gastrointestinal complaints, Denies abdominal pain, Denies melena, Denies hematochezia, Denies change in bowel habits and Denies change in stool character Genitourinary: Genitourinary: Denies hematuria, Denies urinary frequency, Denies dysuria, Denies urinary incontinence, Denies urinary hesitancy and Denies urinary urgency Comments: vaginal irritation and swelling Musculoskeletal: Musculoskeletal: Reports no additional musculoskeletal complaints, Denies numbness and Denies tingling Neurologic: Denies dizziness, Denies loss of vision, Denies numbness and Denies tingling Psychiatric: Psychiatric: Reports no additional psychiatric complaints Endocrine: Endocrine: Reports no additional endocrine complaints Hematologic/Lymphatic: Hematologic/Lymphatic: Reports no additional hematologic/lymphatic complaints Allergic/Immunologic: Allergic/Immunologic: Reports no additional allergic/immunologic complaints PMFSH Past Medical History Attestation statement: The following information was validated with the patient. Source: old records reviewed and nursing notes reviewed Onset Date is defined in the Problem List Problems that require an onset date and time if occurred within 24 hrs of arrival to the ED Aortic Dissection and Rupture; Neurologic impairment; Cardiopulmonary Arrest; Endotracheal Intubation; Insertion or Replacement of Mechanical Circulatory Assist Device Medical History Abnormal ECG COPD (chronic obstructive pulmonary disease) Chronic back pain GERD (gastroesophageal reflux disease) Hypertension Social History Social History Household Members: Family and Children Household Members Other:: grandson and 2 daughters Housing: Apartment Do you presently have visiting nurse or other home services: No Alcohol intake: current Alcohol intake frequency: holidays/special occasions only Patient Tobacco Use Status: Former Tobacco user e-Cigarette/Vaping Use: Currently Using Advance Directives: No Advance Directives Information Provided: Yes service: No Physical Exam Vital Signs: Vital Signs: Last Vital Signs Temp 99.0 F 03/07/23 11:34 Pulse 108 H 03/07/23 11:34 Resp 20 03/07/23 11:34 BP 125/78 03/07/23 11:34 Pulse Ox 92 03/07/23 11:34 O2 Del Method Room Air 03/07/23 11:34 BMI result Body Mass Index 71.6 Const: General: cooperative, no acute distress, alert and awake Nutritional Appearance: well nourished Orientation/consciousness: patient oriented x3 Limitations: no limitations HEENT: Head: Yes normal to inspection and Yes atraumatic Ears: hearing grossly normal bilaterally and external ears normal General nose exam: Normal external nose present, no nasal discharge noted and no epistaxis Face and sinus: Yes normal facial exam, No abrasion and No laceration Mouth: Normal oral and palatal mucosa present, no drooling and no muffled voice Eyes: General: appearance normal, both eyes and all related structures Periorbital: periorbital findings normal Eyelids: Yes eyelids normal Conjunctivae: conjunctivae normal Pupils: Equal, round and reactive pupils present EOM: EOMs intact bilaterally Neck: Neck: Yes normal visual inspection, Yes full ROM and Yes no lymphadenopathy Chest: Chest palpation & inspection: normal inspection of the chest Resp: Effort & Inspection: normal respiratory effort and able to speak in complete sentences GI: Inspection: Yes normal to inspection : External Female Exam: other (extensive surrounding erythema and white discharge consistent with yeast) Neuro: General: patient oriented x3 and moves all extremities Cranial nerves: Yes Equal, round and reactive pupils present Cognition (Neuro): normal cognition Motor exam (neuro): 5/5 motor strength present throughout Sensory Exam: Normal double simultaneous stimulation for sensation Coordination: [id number] test normal Extrem: General: Yes normal to inspection, Yes full ROM and Yes capillary refill normal Psych: Appearance: grossly normal Mental Status: mental status grossly normal Affect: normal affect Attitude: cooperative Thought process: Normal thought process present Thought content: Normal thought content present Insight: Good insight present (Psych) Course Course Course Narrative: This is a rapid medical exam. Deferred additional HPI, ROS, PE to primary provider. 42 yo female with history of DM, obesity, COPD, GERD here with complaints of itching vaginal rash, vaginal discharge, boil on labia. Took monistat with no improvement of symptoms. Unable to visualize in triage. VSS Medical Decision Making Medical Decision Making MDM Narrative: Patient is a 42 year old assigned female at with a history of DM, GERD, asthma, and HTN presenting to the emergency department today with vaginal irritation and swelling. Patient's physical exam was consistent with vaginal yeast. Given patient's history of DM, will also cover for cellulitis. I explained my physical exam findings to the patient. I answered all questions asked by the patient. I stressed the importance of the patient taking her medication as prescribed. I stressed the importance of the patient following up with her primary care provider. I stressed the importance of the patient returning to the emergency department immediately if her symptoms were to worsen or if she were to develop any dizziness, shortness of breath, difficulty breathing, chest pain, blurry vision, loss of vision, nausea, vomiting, abdominal pain, fever, chills, back pain, or any other complaints. Patient verbalized agreement and understanding with this treatment plan and discharge. Differential Diagnosis Differential Diagnoses: The differential diagnosis associated with the presentation includes Vaginal cellulitis Vaginal yeast Admission/Observation Consideration of admission/observation: Escalation of care including admission/observation considered Patient would have been admitted to the hospital had her clinical presentation warranted hospital admission. Prescription Management I considered prescription management with: Antibiotic (patient prescribed an antibiotic to cover for cellulitis) and Other (patient prescribed an antifungal) Chronic Conditions Patient?s care impacted by: Diabetes and Hypertension Discharge Plan Discharge Clinical Impression: Vaginal yeast infection, Cellulitis Patient Disposition: Home, Self-Care Instructions: Cellulitis (DC), Skin Yeast Infection (ED) Additional Instructions: Follow up with your primary care provider. Return to the emergency department immediately if your symptoms worsen or if you develop any dizziness, shortness of breath, difficulty breathing, chest pain, blurry vision, loss of vision, nausea, vomiting, abdominal pain, fever, chills, back pain, or any other complaints. Prescriptions: New cefuroxime axetil 250 mg tablet 250 mg PO BID 7 Days Qty: 14 0RF fluconazole 150 mg tablet 150 mg PO Q3D Qty: 2 0RF No Action tizanidine 4 mg tablet 4 mg PO TID pantoprazole 40 mg tablet,delayed release (DR/EC) 40 mg PO DAILY@0630 albuterol sulfate [Ventolin HFA] 90 mcg/actuation HFA aerosol inhaler 2 puff INHALATION Q6H budesonide-formoterol [Symbicort] 80-4.5 mcg/actuation HFA aerosol inhaler 2 puff INHALATION BID losartan 50 mg Tablet 100 mg PO DAILY Qty: 30 0RF Protocol: Hold for SBP< HOLD for SBP < : 90 atorvastatin 80 mg Tablet 80 mg PO BEDTIME Qty: 30 0RF prednisone 20 mg Tablet 40 mg PO DAILY Qty: 4 0RF amlodipine 10 mg Tablet 10 mg PO DAILY Qty: 30 0RF Protocol: Hold for SBP< HOLD for SBP < : 90 glipizide 5 mg Tablet 5 mg PO BIDWM Qty: 60 0RF ferrous sulfate 324 mg (65 mg iron) tablet,delayed release (DR/EC) 324 mg PO DAILY Qty: 30 0RF Referrals: Calderon Goel MD [Primary Care Provider] - Interventions: ED Discharge Assessment Last Done: 03/07/23 14:26 Discharge Date/Time: 03/07/23 14:27 Print Language: Jordanian
[2023-03-07 11:34] VITALS: BP 125/78; PULSE 108; RESP 20; TEMP 37.2; O2SAT 92; BMI 71.6
== END 2023-03-07 14:27 | disposition home or self-care (01) ==
PROVIDERS: Emergency Provider Student in an Organized Health Care Education/Training Program; PCP Internal Medicine
DX: N76.0 Acute vaginitis (principal); N76.2 Acute vulvitis
CPT/HCPCS: 99283

== ENCOUNTER 2023-04-01 21:04 | Emergency (ER) | payer OTHER, SELFPAY ==
--- NOTE | 2023-04-01 | ECG_ITS ---
Test Reason : CHEST PAIN Blood Pressure : / mmHG Vent. Rate : 096 BPM Atrial Rate : 096 BPM P-R Int : 138 ms QRS Dur : 074 ms QT Int : 346 ms P-R-T Axes : 036 017 102 degrees QTc Int : 437 ms Normal sinus rhythm Nonspecific T wave abnormality Abnormal ECG When compared with ECG of 02-OCT-2022 15:36, Nonspecific T wave abnormality has replaced inverted T waves in Lateral leads Referred By: Generic ED Physician Electronically Signed By:EDUIN ENGEL MD
[2023-04-01 21:12] VITALS: BP 180/110; BP 183/87; PULSE 102; PULSE 96; RESP 18; TEMP 36.7; O2SAT 96; O2SAT 98; BMI 70.3
--- NOTE | 2023-04-01 21:24 | ED_ITS ---
HPI - Chest Pain General Chief Complaint: Chest Pain Stated Complaint: CHEST PAIN Time Seen by Provider: 04/01/23 21:22 Source: patient Mode of arrival: ambulatory Limitations: no limitations History of Present Illness HPI narrative: Patient morbidly obese with history of hypertension diabetes GERD, COPD sleep apnea with frequent chest pain woke up from sleep with feeling of burning sharp pain in the mid chest Related Data Home Medications Medication Instructions Recorded Confirmed albuterol sulfate 90 mcg/actuation 2 puff inhalation Q6H 10/02/22 10/02/22 aerosol inhaler (Ventolin HFA) budesonide-formoterol HFA 80 2 puff inhalation BID 10/02/22 10/02/22 mcg-4.5 mcg/actuation aerosol inhaler (Symbicort) pantoprazole 40 mg tablet,delayed 40 mg PO DAILY@0630 10/02/22 10/02/22 release tizanidine 4 mg tablet 4 mg PO TID 10/02/22 10/02/22 Previous Rx's Medication Instructions Recorded amlodipine 10 mg tablet 10 mg PO DAILY #30 tabs 10/05/22 atorvastatin 80 mg tablet 80 mg PO BEDTIME #30 tabs 10/05/22 ferrous sulfate 324 mg (65 mg 324 mg PO DAILY #30 tabs 10/05/22 iron) tablet,delayed release glipizide 5 mg tablet 5 mg PO BIDWM #60 tabs 10/05/22 losartan 50 mg tablet 100 mg PO DAILY #30 tabs 10/05/22 prednisone 20 mg tablet 40 mg (2 x 20 mg) PO DAILY #4 tabs 10/05/22 cefuroxime axetil 250 mg tablet 250 mg PO BID 7 days #14 tabs 03/07/23 fluconazole 150 mg tablet 150 mg PO Q3D 2 doses #2 tabs 03/07/23 Allergies Allergy/AdvReac Type Severity Reaction Status Date / Time aspirin Allergy Unknown unknown Verified 03/07/23 11:33 Review of Systems 2 Review of Systems: Yes all other systems are reviewed and are negative PMFSH Past Medical History Medical History Abnormal ECG COPD (chronic obstructive pulmonary disease) Chronic back pain GERD (gastroesophageal reflux disease) Hypertension Social History Social History Household Members: Family and Children Household Members Other:: grandson and 2 daughters Housing: Apartment Do you presently have visiting nurse or other home services: No Alcohol intake: never Patient Tobacco Use Status: Former Tobacco user Smoked in Last 30 Days: No e-Cigarette/Vaping Use: Currently Using Use of substances other than those prescribed or required for medical reasons: No Advance Directives: No Advance Directives Information Provided: No Patient : No service: No Physical Exam 2 Vital Signs: Vital Signs: Last Vital Signs Temp 98.3 F 04/01/23 23:47 Pulse 85 04/01/23 23:47 Resp 16 04/01/23 23:47 BP 140/71 H 04/01/23 23:47 Pulse Ox 96 04/01/23 23:47 O2 Del Method Room Air 04/01/23 23:47 BMI result Body Mass Index 70.3 Appearance: Alert. Oriented X3. No acute distress. Obese Eyes: PERRLA, No Nystagmus ENT: Pharynx normal. Oral Mucosa moist Neck: Normal inspection. Neck supple. CVS: Normal heart rate and rhythm. Pulses normal. Respiratory: No respiratory distress. Equal air entry bilateral, no wheezing/rales/rhonchi Abdomen: Soft and nontender. Bowel sounds are present, no mass palpable, no CVA tenderness Skin: Skin warm and dry. Normal skin color. Normal skin turgor. Extremities: No lower extremity edema. No calf tenderness Neuro: Oriented X 3. Medical Decision Making Medical Decision Making [facility] Narrative: Patient with atypical chest pain with history of GERD with previous workup including echo was negative patient symptoms improved after arrival advised to continue PPI no acute ischemic changes cardiac enzymes stable Differential Diagnosis Differential Diagnoses: The differential diagnosis associated with the presentation includes Esophageal spasm/ACS/atypical chest pain Lab Data [facility] Lab Attestation statement: I reviewed the patient's lab results. 04/01/23 21:30 04/01/23 21:30 Labs: Lab Results 04/01/23 Range/Units 21:30 WBC 9.2 (4.8-10.8) X10*3/uL RBC 4.96 (4.20-5.50) X10*6/uL Hgb 10.1 L (12.0-16.0) g/dl Hct 34.6 L (37.0-47.0) % MCV 69.8 L (80.0-98.0) fL MCH 20.4 L (27.0-33.0) pg MCHC 29.2 L (31.0-35.0) g/dl RDW 21.2 H (11.0-16.0) % Plt Count 240 (160-400) X10*3/uL MPV 8.9 L (9.4-12.3) fL Immature Gran % (Auto) 0.4 (0.0-0.4) % Neut % (Auto) 69.7 (45-73) % Lymph % (Auto) 19.7 L (20-40) % [place] % (Auto) 7.6 (2-11) % Eos % (Auto) 2.4 (0-4) % Baso % (Auto) 0.2 (0-2) % Lymph # (Auto) 1.8 (1.2-4.9) X10*3/uL [place] # (Auto) 0.7 (0.1-1.2) X10*3/uL Eos # (Auto) 0.2 (0.0-0.4) X10*3/uL Baso # (Auto) 0.0 (0.0-0.2) X10*3/uL Abs Immat Gran (auto) 0.04 H (0.00-0.03) X10*3/uL Absolute Neuts (auto) 6.4 (2.0-8.3) x10*3/uL Absolute Nucleated RBC 0.000 (0.0-0.012) X10*3/uL Nucleated RBC % (auto) 0.0 (0.0-0.2) /100WBC Sodium 135 (135-145) mmol/L Potassium 4.3 (3.3-5.1) mmol/L Chloride 101 (96-108) mmol/L Carbon Dioxide 26 (22-29) mmol/L Anion Gap 12 (12-20) BUN 16 (9-16) mg/dL Creatinine 1.35 (0.5-1.4) mg/dL Estim Creat Clear Calc 86.8 Estimated GFR 43 Random Glucose 286 H (60-115) mg/dL Calcium 9.1 (8.4-10.2) mg/dL Total Bilirubin 0.3 (0.0-1.0) mg/dL AST 22 (5-31) U/L ALT 20 (0-31) U/L Alkaline Phosphatase 94 (39-117) U/L Troponin I High Sens 4.8 (<3.5-17.0) ng/L Total Protein 8.0 (6.5-8.0) g/dL Albumin 3.7 (3.5-5.0) g/dL Independent Interpretation I performed an independent interpretation of an: EKG Interpretation: Normal sinus rhythm heart rate 96 beats per minute normal interval normal axis no acute ST T wave changes no acute ischemia Discharge Plan Discharge Clinical Impression: Atypical chest pain, GERD (gastroesophageal reflux disease) Patient Disposition: Home, Self-Care Instructions: Chest Pain (ED), Gastroesophageal Reflux Disease (ED) Additional Instructions: Avoid fried foods Continue take medication for your acid reflux Follow with PCP if any concerns Prescriptions: No Action cefuroxime axetil 250 mg tablet 250 mg PO BID 7 Days Qty: 14 0RF fluconazole 150 mg tablet 150 mg PO Q3D Qty: 2 0RF tizanidine 4 mg tablet 4 mg PO TID pantoprazole 40 mg tablet,delayed release (DR/EC) 40 mg PO DAILY@0630 albuterol sulfate [Ventolin HFA] 90 mcg/actuation HFA aerosol inhaler 2 puff INHALATION Q6H budesonide-formoterol [Symbicort] 80-4.5 mcg/actuation HFA aerosol inhaler 2 puff INHALATION BID losartan 50 mg Tablet 100 mg PO DAILY Qty: 30 0RF Protocol: Hold for SBP< HOLD for SBP < : 90 atorvastatin 80 mg Tablet 80 mg PO BEDTIME Qty: 30 0RF prednisone 20 mg Tablet 40 mg PO DAILY Qty: 4 0RF amlodipine 10 mg Tablet 10 mg PO DAILY Qty: 30 0RF Protocol: Hold for SBP< HOLD for SBP < : 90 glipizide 5 mg Tablet 5 mg PO BIDWM Qty: 60 0RF ferrous sulfate 324 mg (65 mg iron) tablet,delayed release (DR/EC) 324 mg PO DAILY Qty: 30 0RF Interventions: ED Discharge Assessment Last Done: 04/02/23 00:25 Discharge Date/Time: 04/02/23 00:26
[2023-04-01 21:33] LABS: MANUAL DIFF FLAG NO
[2023-04-01 21:34] LABS: Basophils Percent Auto 0.2 % (0-2); Eosinophils Absolute Auto 0.2 X10*3/uL (0.0-0.4); Eosinophils Percent Auto 2.4 % (0-4); Hematocrit 34.6 % (37.0-47.0); Hemoglobin 10.1 g/dl (12.0-16.0); Imm Gran Abs Auto 0.04 X10*3/uL (0.00-0.03); Imm Gran Pct Auto 0.4 % (0.0-0.4); Lymphocytes Absolute Auto 1.8 X10*3/uL (1.2-4.9); Lymphocytes Percent Auto 19.7 % (20-40); Mean Corpuscular HGB Conc 29.2 g/dl (31.0-35.0); Mean Corpuscular Hemoglobin 20.4 pg (27.0-33.0); Mean Corpuscular Volume 69.8 fL (80.0-98.0); Mean Platelet Volume 8.9 fL (9.4-12.3); Monocytes Absolute Auto 0.7 X10*3/uL (0.1-1.2); Monocytes Percent Auto 7.6 % (2-11); Neutrophils Absolute Auto 6.4 x10*3/uL (2.0-8.3); Neutrophils Percent Auto 69.7 % (45-73); Platelet Count 240 X10*3/uL (160-400); Red Blood Count 4.96 X10*6/uL (4.20-5.50); Red Cell Distribution Width 21.2 % (11.0-16.0); White Blood Count 9.2 X10*3/uL (4.8-10.8)
[2023-04-01 21:52] LABS: Alanine Aminotransferase 20 U/L (0-31); Albumin Level 3.7 g/dL (3.5-5.0); Alkaline Phosphatase 94 U/L (39-117); Anion Gap 12 (12-20); Aspartate Amino Transferase 22 U/L (5-31); Bilirubin Total 0.3 mg/dL (0.0-1.0); Blood Urea Nitrogen 16 mg/dL (9-16); Calcium 9.1 mg/dL (8.4-10.2); Carbon Dioxide 26 mmol/L (22-29); Chloride 101 mmol/L (96-108); Creatinine Clr Calc Pharmacy 86.8; Estimated Glomerular Filt Rate 43; Glucose Random 286 mg/dL (60-115); Potassium 4.3 mmol/L (3.3-5.1); Sodium 135 mmol/L (135-145)
[2023-04-01 21:58] LABS: Troponin-I High Sensitivity 4.8 ng/L (<3.5-17.0)
[2023-04-01 22:22] VITALS: BP 129/77; PULSE 85; RESP 16; TEMP 36.7; O2SAT 95
[2023-04-01 23:47] VITALS: BP 140/71; PULSE 85; RESP 16; TEMP 36.8; O2SAT 96
[2023-04-02 00:22] VITALS: PULSE 79
== END 2023-04-02 00:26 | disposition home or self-care (01) ==
PROVIDERS: Emergency Provider Internal Medicine; PCP Internal Medicine
DX: R07.89 Other chest pain (principal); K21.9 Gastro-esophageal reflux disease without esophagitis; E11.9 Type 2 diabetes mellitus without complications; E78.5 Hyperlipidemia, unspecified; I10 Essential (primary) hypertension; Z79.02 Long term (current) use of antithrombotics/antiplatelets; Z79.84 Long term (current) use of oral hypoglycemic drugs
CPT/HCPCS: 36415; 80053; 84484; 85025; 93005; 99283; 99285

== ENCOUNTER → 2023-04-01 21:15 | Outpatient (BNV) | payer OTHER, SELFPAY | PROVIDERS: Emergency Provider Internal Medicine; PCP Internal Medicine; Visit Provider Internal Medicine Cardiovascular Disease | DX: R94.31 Abnormal electrocardiogram [ECG] [EKG] (principal) | CPT/HCPCS: 93010 ==

== ENCOUNTER 2024-09-06 21:37 | Emergency (ER) | payer MEDICARE, MEDICAID, SELFPAY ==
--- NOTE | 2024-09-06 | ECG_ITS ---
Test Reason : SNYCOPE Blood Pressure : */* mmHG Vent. Rate : 99 BPM Atrial Rate : 99 BPM P-R Int : 172 ms QRS Dur : 78 ms QT Int : 346 ms P-R-T Axes : 33 16 116 degrees QTcB Int : 444 ms Normal sinus rhythm Nonspecific T wave changes Abnormal ECG When compared with ECG of 01-Apr-2023 21:15, No significant change was found Referred By: Generic ED Physician Electronically Signed By: Heber Saul
[2024-09-06 21:48] VITALS: BP 142/96; PULSE 105; O2SAT 98
[2024-09-06 21:49] VITALS: BP 121/85; PULSE 100; RESP 19; TEMP 37; O2SAT 96; BMI 57.2
[2024-09-06 21:57] VITALS: BP 126/83; PULSE 98; RESP 16; O2SAT 97
[2024-09-06 22:10] LABS: MANUAL DIFF FLAG NO
[2024-09-06 22:11] LABS: Hematocrit 34.1 % (37.0-47.0); Hemoglobin 11.0 g/dl (12.0-16.0); Imm Gran Abs Auto 0.06 X10*3/uL (0.00-0.03); Imm Gran Pct Auto 0.5 % (0.0-0.4); Lymphocytes Absolute Auto 2.6 X10*3/uL (1.2-4.9); Mean Corpuscular HGB Conc 32.3 g/dl (31.0-35.0); Mean Corpuscular Hemoglobin 22.0 pg (27.0-33.0); Mean Corpuscular Volume 68.2 fL (80.0-98.0); NRBC Abs Auto 0.000 X10*3/uL (0.0-0.012); NRBC Pct Auto 0.0 /100WBC (0.0-0.2); Platelet Count 353 X10*3/uL (160-400); Red Blood Count 5.00 X10*6/uL (4.20-5.50); White Blood Count 13.2 X10*3/uL (4.8-10.8)
[2024-09-06 22:30] LABS: Alanine Aminotransferase 17 U/L (0-31); Albumin Level 4.1 g/dL (3.5-5.0); Alkaline Phosphatase 100 U/L (39-117); Anion Gap 15 (12-20); Aspartate Amino Transferase 21 U/L (5-31); Blood Urea Nitrogen 16 mg/dL (9-16); Calcium 9.3 mg/dL (8.4-10.2); Carbon Dioxide 24 mmol/L (22-29); Chloride 104 mmol/L (96-108); Creatinine Clr Calc Pharmacy 48.1; Estimated Glomerular Filt Rate 25; Potassium 2.9 mmol/L (3.3-5.1); Sodium 140 mmol/L (135-145); Total Protein 8.1 g/dL (6.5-8.0)
[2024-09-06 22:32] LABS: Troponin-I High Sensitivity 4.7 ng/L (<3.5-17.0)
--- OUTSIDE RECORDS SUMMARY | 2024-09-06 22:36 | XMS_ITS | Clinical Summary ---
Author Organization [facility] ity Address [address] [place] [address] Care Team Providers Care Circular Sawyer Helper Name Role Phone Unavailable Primary Care Provider Unavailabl e Medical History Medical History Date Comments Hypertension DX:Hypertension Kidney infection DX:Kidney infec tion Arthritis DX:Arthritis Anemia DX:Anemia Family History Medical History Relation Name Comments Immunodeficiency Neg Hx Social History Tobacco Use Types Packs/Day Years Used Date Smoking Tobacco: Former Cigarettes 0 06/22/1992 - 06/23/2015 Smokeless Tobacco: Never Alcohol Use Standard Drinks/Week Comments No 0 (1 standard drink = 0.6 oz pur e alcohol) Comments Unknown Sex and Gender Information Value Date Recorded Sex Assigned at Not on file Legal Sex Female 1:04 PM EST Gender Identity Not on file Sexual Orientation Not on file Obstetrics History Plan of Treatment Health Maintenance Due Date Last Done Comments Breast Cancer Screening 1978 DTaP,Tdap,and Td Vaccines (1 - Tdap) 1997 Hepatitis B Vaccines (1 of 3 - 19+ 3-dose series) 1997 Cervical Cancer Screening: Pap Smear 1999 Cholesterol Screening (Lipid Panel) 01/28/2022 Colorectal Cancer Screening: Colonoscopy 01/28/2022 Depression Screening 01/28/2022 HIV Screening 01/28/2022 Hepatitis C Screening 01/28/2022 Social Influencers of Health Screening 01/28/2022 Hypertension/CHF/CAD Annual BMP Blood Test 05/03/2022 05/03/2021, 05/02/2021, 10/08/2020, Additional history exists COVID-19 Vaccine ( - season) 2023 Influenza Vaccine (#1) 2024 HIB Vaccines Aged Out No longer eligi ble based on patient's age to complete this topic HPV Vaccines Aged Out No longer eligi ble based on patient's age to complete this topic Hepatitis A Vaccines Aged Out No long er eligible based on patient's age to complete this topic IPV Vaccines Aged Out No longer eligi ble based on patient's age to complete this topic MMR Vaccines Aged Out No longer eligi ble based on patient's age to complete this topic Meningococcal ACWY Vaccine Aged Out N o longer eligible based on patient's age to complete this topic Meningococcal B Vaccine Aged Out No l onger eligible based on patient's age to complete this topic Pneumococcal Vaccine: Pediatrics (0 to 5 Years) and At-Risk Patients (6 to 49 Years) Aged Out No longer eligible based on patient's age to complete this topic RSV Immunization Patients Under 20 months Aged Out No longer eligible based on patient's age to complete this topic Varicella Vaccines Aged Out No longer eligible based on patient's age to complete this topic
--- NOTE | 2024-09-06 23:52 | ED.GENADULT ---
HPI - General Adult General Chief complaint: Weakness Stated complaint: multiple near syncopal episodes Time Seen by Provider: 09/06/24 22:18 Source: patient and EMS Mode of arrival: EMS Limitations: no limitations History of Present Illness ED Provider: Dr. Yary Adams HPI narrative: 44-year-old female with history of hypertension, diabetes, COPD, obesity on Mounjaro presenting with weakness, fatigue, intermittent dizziness and shortness of breath. States she initially thought something might be ?wrong with her blood pressure medications? because she has lost about 120 lb over the last 12 months. This is intentional weight loss. Patient reports that EMS reported hypotension with a systolic of ?90-something?. Admits that she never has blood pressure quite that low. Has been dealing with a lot of stress at home as well and noted that her refrigerator broke leading to her having difficulty with nutrition. She denies associated fever, cough with sputum production, abdominal pain, chest pain, vomiting or diarrhea. Has been taking all of her medications as prescribed. Does admit to decreased oral intake secondary to the Mounjaro but admits she drinks water and herbal tea regularly. Related Data Home Medications ?Medication ?Instructions ?Recorded ?Confirmed albuterol sulfate 90 mcg/actuation 2 puff inhalation Q6H 10/02/22 10/02/22 aerosol inhaler (Ventolin HFA) budesonide-formoterol HFA 80 2 puff inhalation BID 10/02/22 10/02/22 mcg-4.5 mcg/actuation aerosol inhaler (Symbicort) pantoprazole 40 mg tablet,delayed 40 mg PO DAILY@0630 10/02/22 10/02/22 release tizanidine 4 mg tablet 4 mg PO TID 10/02/22 10/02/22 Previous Rx's ?Medication ?Instructions ?Recorded amlodipine 10 mg tablet 10 mg PO DAILY #30 tabs 10/05/22 atorvastatin 80 mg tablet 80 mg PO BEDTIME #30 tabs 10/05/22 ferrous sulfate 324 mg (65 mg 324 mg PO DAILY #30 tabs 10/05/22 iron) tablet,delayed release glipizide 5 mg tablet 5 mg PO BIDWM #60 tabs 10/05/22 losartan 50 mg tablet 100 mg PO DAILY #30 tabs 10/05/22 prednisone 20 mg tablet 40 mg (2 x 20 mg) PO DAILY #4 tabs 10/05/22 cefuroxime axetil 250 mg tablet 250 mg PO BID 7 days #14 tabs 03/07/23 fluconazole 150 mg tablet 150 mg PO Q3D 2 doses #2 tabs 03/07/23 potassium chloride 20 mEq 20 meq PO DAILY #7 tabs 09/07/24 tablet,extended release (K-Tab) Allergies Allergy/AdvReac Type Severity Reaction Status Date / Time aspirin Allergy Unknown unknown Verified 09/06/24 21:52 Review of Systems Review of Systems: Yes all other systems are reviewed and are negative (As per HPI) [facility] Past Medical History Attestation statement: The following information was validated with the patient. (Hypertension, hyperlipidemia, diabetes, obesity) Source: old records reviewed Medical History Abnormal ECG COPD (chronic obstructive pulmonary disease) Chronic back pain GERD (gastroesophageal reflux disease) Hypertension Social History Social History Household Members: Family and Children Household Members Other:: grandson and 2 daughters Housing: Apartment Do you presently have visiting nurse or other home services: No Alcohol intake: never Patient Tobacco Use Status: Former Tobacco user Smoked in Last 30 Days: Yes e-Cigarette/Vaping Use: Currently Using Use of substances other than those prescribed or required for medical reasons: Yes Substance Use Type: Prescription Drugs Advance Directives: No Advance Directives Information Provided: No Patient : No service: No Physical Exam ED Vital Signs: Vital Signs - 24 hr 09/06/24 21:49 09/06/24 21:57 09/07/24 00:00 Temperature 98.6 F 98.4 F Pulse Rate 100 98 93 Respiratory Rate 19 16 13 Blood Pressure 121/85 126/83 128/98 H Pulse Oximetry 96 97 94 Oxygen Delivery Method Room Air Room Air Room Air 09/07/24 01:46 09/07/24 06:13 Temperature 98.3 F 97.7 F Pulse Rate 92 87 Respiratory Rate 14 17 Blood Pressure 133/97 H 147/92 H Pulse Oximetry 99 97 Oxygen Delivery Method Room Air Room Air BMI result Body Mass Index 57.2 GENERAL: Ill-Appearing, appears uncomfortable. SKIN: Normal skin color for ethnicity, warm, dry, no rashes noted. HEENT: Normocephalic, atraumatic, no stridor, dry mucous membranes, dentition intact, EOMI, PERRLA. NECK: Soft, supple, full ROM, midline structures nontender, no step-offs, no deformities, no lymphadenopathy. CHEST: Heart regular tachycardia, no murmurs, symmetric chest rise and fall. PULMONARY: Clear to auscultation bilaterally, diminished at the bases, no labored breathing, no wheezes/rhales/rhonchi. ABDOMINAL: Soft, nondistended, nontender, positive bowel sounds in all quadrants. : Deferred. MUSCULOSKELETAL: Normal tone, full range of motion, no deformities, no peripheral edema. NEURO: Alert and oriented x3, CN II through XII intact, equal strength and sensation bilateral upper and lower extremities, no focal neurologic deficits. PSYCHIATRIC: Flat affect, fluid speech, good eye contact and appropriate demeanor. Medications Administered Discontinued Medications Generic Name Dose Route Start Last Admin Trade Name Freq PRN Reason Stop Dose Admin Potassium Chloride 10 meq in 100 mls @ 100 mls/hr 09/07/24 00:15 09/07/24 05:56 Potassium Chloride/H20 IV 09/07/24 04:14 Not Given Q1H MARCI Sodium Chloride 1,000 mls @ 999 mls/hr 09/07/24 00:15 09/07/24 02:15 Ns IV 09/07/24 01:15 Infused .Q1H1M MARCI Infusion Lorazepam 1 mg 09/07/24 00:50 09/07/24 01:11 Lorazepam 2 Mg/Ml Vial IVPUSH 09/07/24 00:51 1 mg ONCE ONE Administration Potassium Chloride 40 meq 09/07/24 00:09 09/07/24 00:24 Potassium Chloride Packet 20 Meq Packet PO 09/07/24 00:10 40 meq ONCE ONE Administration Potassium Chloride 20 meq 09/07/24 02:47 09/07/24 03:12 Potassium Chloride Er 20 Meq Tab.Er.Prt PO 09/07/24 02:48 20 meq ONCE ONE Administration Medical Decision Making Medical Decision Making MDM Narrative: Patient presents today with generalized weakness and fatigue. Differential diagnosis includes anemia, electrolyte abnormality, infection, rhabdomyolysis/myositis, neurologic disorders such as Guillain-Warren or myasthenia gravis, CVA, medication side effects, deconditioning, dehydration, among many others. A broad-based workup was initiated based on the patient's history and physical examination. They were watched closely on environmental monitoring technician with vital signs that were monitored during the duration of their stay. There are no signs of focal neurological deficit or weakness on exam. 6:39 a.m. patient feeling improved after fluids and oral potassium. She is refusing further IV potassium at this time. Using shared decision making, plan for discharge home to follow-up with primary care and/or specialist. Provided with a prescription for potassium. Patient understands and agrees with plan for discharge. Discharged home in stable condition. Differential Diagnosis Differential Diagnoses: The differential diagnosis associated with the presentation includes (As above) Admission/Observation Consideration of admission/observation: Escalation of care including admission/observation considered Lab Data MDM Lab Attestation statement: I reviewed the patient's lab results. (Notably hypokalemic potassium of 2.9. LILIANA with a creatinine of 2.15) 09/06/24 22:03 09/06/24 22:03 Labs: Lab Results 09/06/24 Range/Units 22:03 WBC 13.2 H (4.8-10.8) X10*3/uL RBC 5.00 (4.20-5.50) X10*6/uL Hgb 11.0 L (12.0-16.0) g/dl Hct 34.1 L (37.0-47.0) % MCV 68.2 L (80.0-98.0) fL MCH 22.0 L (27.0-33.0) pg MCHC 32.3 (31.0-35.0) g/dl RDW 19.9 H (11.0-16.0) % Plt Count 353 D (160-400) X10*3/uL MPV 9.2 L (9.4-12.3) fL Immature Gran % (Auto) 0.5 H (0.0-0.4) % Neut % (Auto) 69.8 (45-73) % Lymph % (Auto) 19.6 L (20-40) % [place] % (Auto) 6.1 (2-11) % Eos % (Auto) 3.6 (0-4) % Baso % (Auto) 0.4 (0-2) % Lymph # (Auto) 2.6 (1.2-4.9) X10*3/uL [place] # (Auto) 0.8 (0.1-1.2) X10*3/uL Eos # (Auto) 0.5 H (0.0-0.4) X10*3/uL Baso # (Auto) 0.1 (0.0-0.2) X10*3/uL Abs Immat Gran (auto) 0.06 H (0.00-0.03) X10*3/uL Absolute Neuts (auto) 9.2 H (2.0-8.3) x10*3/uL Absolute Nucleated RBC 0.000 (0.0-0.012) X10*3/uL Nucleated RBC % (auto) 0.0 (0.0-0.2) /100WBC Sodium 140 (135-145) mmol/L Potassium 2.9 L* D (3.3-5.1) mmol/L Chloride 104 (96-108) mmol/L Carbon Dioxide 24 (22-29) mmol/L Anion Gap 15 (12-20) BUN 16 (9-16) mg/dL Creatinine 2.15 H (0.5-1.4) mg/dL Estim Creat Clear Calc 48.1 Estimated GFR 25 Random Glucose 122 H (60-115) mg/dL Calcium 9.3 (8.4-10.2) mg/dL Magnesium 1.8 (1.6-2.6) mg/dL Total Bilirubin 0.4 (0.0-1.0) mg/dL AST 21 (5-31) U/L ALT 17 (0-31) U/L Alkaline Phosphatase 100 (39-117) U/L Troponin I High Sens 4.7 (<3.5-17.0) ng/L Total Protein 8.1 H (6.5-8.0) g/dL Albumin 4.1 (3.5-5.0) g/dL Independent Interpretation I performed an independent interpretation of an: EKG Interpretation: My independent interpretation of the ECG reveals normal sinus rhythm with rate of 99, normal axis, normal intervals, no ST elevations or depressions to suggest ischemic changes, relatively unchanged from previous on 04/01/2023. Prescription Management I considered prescription management with: Other (Potassium supplementation) Chronic Conditions Patient?s care impacted by: Diabetes and Hypertension Social Determinants Patient?s care significantly limited by Social Determinants of Health including: Low income and Other Social Determinant of Health (Food insecurity, housing insecurity) Discharge Plan Discharge Clinical Impression: Dehydration, LILIANA (acute kidney injury), Hypokalemia Patient Disposition: Home, Self-Care Instructions: Acute Kidney Injury (DC), Potassium Content of Foods List (ED), Hypokalemia (ED) Additional Instructions: Take potassium daily for the next week. Try to increase your food and water intake as much as possible. Return to the emergency department with any new or worsening symptoms including: Worsening chest pain, difficulty breathing, passing out, weakness, any new symptom that concerns you. Call 911 with any medical emergency. Prescriptions: New potassium chloride [K-Tab] 20 mEq tablet extended release 20 meq PO DAILY Qty: 7 0RF No Action cefuroxime axetil 250 mg tablet 250 mg PO BID 7 Days Qty: 14 0RF fluconazole 150 mg tablet 150 mg PO Q3D Qty: 2 0RF tizanidine 4 mg tablet 4 mg PO TID pantoprazole 40 mg tablet,delayed release (DR/EC) 40 mg PO DAILY@0630 albuterol sulfate [Ventolin HFA] 90 mcg/actuation HFA aerosol inhaler 2 puff INHALATION Q6H budesonide-formoterol [Symbicort] 80-4.5 mcg/actuation HFA aerosol inhaler 2 puff INHALATION BID losartan 50 mg Tablet 100 mg PO DAILY Qty: 30 0RF Protocol: Hold for SBP< HOLD for SBP < : 90 atorvastatin 80 mg Tablet 80 mg PO BEDTIME Qty: 30 0RF prednisone 20 mg Tablet 40 mg PO DAILY Qty: 4 0RF amlodipine 10 mg Tablet 10 mg PO DAILY Qty: 30 0RF Protocol: Hold for SBP< HOLD for SBP < : 90 glipizide 5 mg Tablet 5 mg PO BIDWM Qty: 60 0RF ferrous sulfate 324 mg (65 mg iron) tablet,delayed release (DR/EC) 324 mg PO DAILY Qty: 30 0RF Print Language: [place]ian
[2024-09-07] VITALS: BP 128/98; PULSE 93; RESP 13; TEMP 36.9; O2SAT 94
[2024-09-07] MEDS: Potassium Chloride/H20 10 MEQ/100 ML PIGGYBACK 100 MEQ IV (00:24)
[2024-09-07] MEDS: Potassium Chloride Packet 20 MEQ PACKET 40 MEQ PO (00:24)
[2024-09-07 00:25] LABS: Magnesium 1.8 mg/dL (1.6-2.6)
--- NOTE | 2024-09-07 00:36 | PC.NURSE ---
hung IVF potassium chloride, pt began complaining she felt weird and wanted to stop the infusion. Provider Bryan velasco, pending new orders at this time.
[2024-09-07] MEDS: LORazepam 2 MG/ML VIAL 1 MG IVPUSH (01:11)
[2024-09-07 01:46] VITALS: BP 133/97; PULSE 92; RESP 14; TEMP 36.8; O2SAT 99
[2024-09-07] MEDS: Potassium Chloride ER 20 MEQ TAB.ER.PRT PO (03:12)
[2024-09-07 06:13] VITALS: BP 147/92; PULSE 87; RESP 17; TEMP 36.5; O2SAT 97
[2024-09-07 07:57] VITALS: BP 147/92; PULSE 87; RESP 17; TEMP 36.5; O2SAT 97
== END 2024-09-07 07:57 | disposition home or self-care (01) ==
PROVIDERS: Emergency Provider Emergency Medicine
DX: E86.0 Dehydration (principal); N17.9 Acute kidney failure, unspecified; E87.6 Hypokalemia; I10 Essential (primary) hypertension; J44.9 Chronic obstructive pulmonary disease, unspecified; Z79.899 Other long term (current) drug therapy; Z87.891 Personal history of nicotine dependence
CPT/HCPCS: 36415; 80053; 83735; 84484; 85025; 93005; 96361; 96374; 99285; J2060; J3480

== ENCOUNTER → 2024-09-06 21:52 | Outpatient (BNV) | payer MEDICARE, MEDICAID, SELFPAY | PROVIDERS: Emergency Provider Emergency Medicine; Visit Provider Internal Medicine Cardiovascular Disease | DX: R94.31 Abnormal electrocardiogram [ECG] [EKG] (principal); R55 Syncope and collapse | CPT/HCPCS: 93010 ==

== ENCOUNTER 2024-11-26 06:25 | Emergency (ER) | payer MEDICARE, MEDICAID, SELFPAY ==
--- NOTE | 2024-11-26 | ECG_ITS ---
Test Reason : CHEST PAIN Blood Pressure : */* mmHG Vent. Rate : 94 BPM Atrial Rate : 94 BPM P-R Int : 176 ms QRS Dur : 80 ms QT Int : 364 ms P-R-T Axes : 50 18 70 degrees QTcB Int : 455 ms Normal sinus rhythm Nonspecific T wave abnormality Abnormal ECG When compared with ECG of 06-Sep-2024 21:52, No significant change was found Referred By: Generic ED Physician Electronically Signed By: Heber Saul
--- NOTE | ~2024-11-26 | XR_ITS ---
CLINICAL HISTORY: CP 2 view chest x-ray. Comparison: None Findings: The lungs are adequately expanded. No focal consolidation. No effusion or pneumothorax. Cardiac and mediastinal contours are within normal limits. No acute osseous abnormality Impression: No acute process. This document has been electronically signed by: Nathaniel Martin MD on 11/26/2024 08:10:12
[2024-11-26 06:45] VITALS: BP 155/105; PULSE 100; O2SAT 97
[2024-11-26 06:53] VITALS: BP 141/81; PULSE 86; RESP 20; TEMP 36.7; O2SAT 98
--- OUTSIDE RECORDS SUMMARY | 2024-11-26 06:54 | XMS_ITS | Clinical Summary ---
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 0 Active atenolol (TENORMIN) tablet 25 mg Take 25 mg by mouth daily. 0 Active pantoprazole (PROTONIX) 40 MG tablet Take 1 tablet (40 mg total) by mouth every morning on an empty stomach. 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 0 Active albuterol 108 (90 Base) MCG/ACT inhaler Inhale 2 puffs into the lungs every 4 (four) hours as needed for wheezing or shortness of breath. 8 g 1 10/08/2020 Active ondansetron (ZOFRAN-ODT) 4 MG disintegrating tablet Take 1 tablet (4 mg total) by mouth every 6 (six) hours as needed. 20 tablet 0 11/22/2021 Active benzonatate (TESSALON) 100 MG capsule Take 1 capsule (100 mg total) by mouth 3 (three) times a day as needed for cough. 20 capsule 0 11/22/2021 Active Active Problems Problem Noted Date Diagnosed Date Hypoxia 05/02/2021 LILIANA (acute kidney injury) 05/02/2021 Acute respiratory distress 05/02/2021 Pneumonia due to COVID-19 virus 10/06/2020 Chest pain 06/22/2018 Essential hypertension 06/22/2018 Family History Medical History Relation Name Comments Immunodeficiency Neg Hx Social History Tobacco Use Types Packs/Day Years Used Date Smoking Tobacco: Former Cigarettes 0 06/22/1992 - 06/23/2015 Smokeless Tobacco: Never Alcohol Use Standard Drinks/Week Comments No 0 (1 standard drink = 0.6 oz pur e alcohol) Sex and Gender Information Value Date Recorded Sex Assigned at Female 03/24/2018 2:01 AM EST Gender Identity Female 06/22/2018 7:58 PM EDT Sexual Orientation Straight 06/22/2018 11 :23 PM EDT Job Start Date Occupation Industry Not on file Not on file Not on file Last Filed Vital Signs Vital Sign Reading Time Taken Comments Blood Pressure 188/100 11/22/2021 5:09 AM EDT Pulse 92 11/22/2021 5:09 AM EDT Temperature 38.2 C (100.8 F) 11/22/2021 5:09 AM EDT Respiratory Rate 20 11/22/2021 5:09 AM EDT Oxygen Saturation 96% 11/22/2021 5:09 AM EDT Inhaled Oxygen Concentration - - Weight 149.7 kg (330 lb) 11/22/2021 5:09 AM EDT Height 160 cm (5' 3 ) 11/22/2021 5:09 AM EDT Body Mass Index 58.46 11/22/2021 5:09 AM EDT Plan of Treatment Health Maintenance Due Date Last Done Comments Hepatitis B Vaccines (1 of 3 - 3-dose series) 1978 Hepatitis C Screening 1978 COVID-19 Vaccine (#1) 1978 Pneumococcal Vaccine (1 of 2 - PCV) 1984 Depression Screening 1990 BMI Counseling 1996 Preventative Health Evaluation 1996 Tobacco Cessation Counseling 1996 DTap / Tdap / Td (1 - Tdap) 1997 Cervical Cancer Screening (P ap Smear) 1999 Colon Cancer Screening (Colonoscopy) 2023 Influenza Vaccine (#1) 2024 RSV Ped < 20 months Aged Out No longe r eligible based on patient's age to complete this topic Additional Health Concerns Infection Onset Date Last Indicated COVID-19 Confirmed Comment:Pos 10/05/20 10/06/2020 10/06/2020 Advance Directives For more information, please contact: [phone] Documents on File Type Date Recorded Patient Estate And Trust Tax Principal Expl anation Advance Directive and Living Will 07/23/2021 2:13 AM Latest Code Status on File Code Status Date Activated Date Inactivated Comments Full Code 05/02/2021 2:57 PM 05/03/2021 11:12 PM This c ode status was ascertained in the following way: discussion with patient . Code Status History Code Status Date Activated Date Inactivated Comments Full Code 10/06/2020 2:58 AM 10/08/2020 7:06 PM This co de status was ascertained in the following way: discussed . Full Code 06/22/2018 8:58 PM 06/23/2018 11:03 PM This code status was ascertained in the following way: discussion with patient . Full Code 06/22/2018 8:55 PM 06/22/2018 8:58 PM
--- OUTSIDE RECORDS SUMMARY | 2024-11-26 06:54 | XMS_ITS | Clinical Summary ---
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
[2024-11-26 07:08] VITALS: BP 141/81; PULSE 90; RESP 16; TEMP 36.6; O2SAT 96; BMI 59.2
--- NOTE | 2024-11-26 07:34 | ED_ITS ---
HPI - Chest Pain General Chief Complaint: Chest Pain Stated Complaint: R sided chest pain Time Seen by Provider: 11/26/24 07:10 Source: patient, EMS, RN notes reviewed and old records reviewed Mode of arrival: EMS Limitations: no limitations History of Present Illness ED Provider: POPEYE Guerra HPI narrative: 44-year-old female with medical history of HLD, COPD, GERD, HTN, T2DM presents to ED by EMS due to R sided chest pressure that began this morning around 530am. Patient states she was up sitting in bed playing games on her phone when she noticed a right-sided intermittent pressure that radiated to her mid back to the right shoulder and right jaw that lasted for approximately 20 minutes before resolving. Patient states the chest pressure improves with deep inspiration and while walking around. Patient states 20 minutes prior to onset of chest pain she was having an emotional conversation with her daughter, and notes increased life stressors dealing with her daughter and her daughter's relationship with her boyfriend. Patient states chest pain has resolved at this time. Patient states the chest pain was not associated any red flag symptoms such as nausea, vomiting, cold sweats, palpitations, syncope, dizziness, lightheadedness. Denies fevers, chills, SOB Related Data Home Medications ?Medication ?Instructions ?Recorded ?Confirmed albuterol sulfate 90 mcg/actuation 2 puff inhalation Q 6H 10/02/22 10/02/22 aerosol inhaler (Ventolin HFA) budesonide-formoterol HFA 80 2 puff inhalation BID 05/2210/02/22 mcg-4.5 mcg/actuation aerosol inhaler (Symbicort) pantoprazole 40 mg tablet,delayed 40 mg PO DAILY@0630 10/02/22 10/02/22 release tizanidine 4 mg tablet 4 mg PO TID 10/02/22 3 Previous Rx's ?Medication ?Instructions ?Recorded amlodipine 10 mg tablet 10 mg PO DAILY #30 tabs 08/22 atorvastatin 80 mg tablet 80 mg PO BEDTIME #30 tabs ferrous sulfate 324 mg (65 mg 324 mg PO DAILY #30 tabs 10/05/22 iron) tablet,delayed release glipizide 5 mg tablet 5 mg PO BIDWM #60 tabs 10/05 losartan 50 mg tablet 100 mg PO DAILY #30 tabs 08/22 prednisone 20 mg tablet 40 mg (2 x 20 mg) PO DAILY # 4 tabs 10/05/22 cefuroxime axetil 250 mg tablet 250 mg PO BID 7 days # 14 tabs 03/07/23 fluconazole 150 mg tablet 150 mg PO Q3D 2 doses #2 tab s 03/07/23 potassium chloride 20 mEq 20 meq PO DAILY #7 tabs 11/24 tablet,extended release (K-Tab) Allergies Allergy/AdvReac Type Severity Reaction Status Date / Time aspirin Allergy Unknown unknown Verified 11/26/24 07:11 Review of Systems 2 Review of Systems: CONST: Negative for fever, body aches and chills. HENT: Negative for neck pain/stiffness, headache, congestion, sore throat, swelling. EYES: Negative for discharge/pain or vision changes. RESP: Negative for cough/hemoptysis and shortness of breath. CV: Negative chest pain, difficulty breathing, palpitations. POS R sided chest pressure ABD: Negative pain, nausea, vomiting. : Negative increase frequency, dysuria, blood in urine or stool. MUSC: Negative for muscle aches, edema. SKIN: Negative rash, lesions/sores. NEURO: Negative headache, dizziness, weakness. Yes all other systems are reviewed and are negative [facility] Past Medical History Medical History Abnormal ECG COPD (chronic obstructive pulmonary disease) Chronic back pain GERD (gastroesophageal reflux disease) Hypertension Social History Social History Household Members: Family and Children Household Members Other:: grandson and 2 daughters Housing: Apartment Do you presently have visiting nurse or other home services: No Alcohol intake: never Patient Tobacco Use Status: Former Tobacco user e-Cigarette/Vaping Use: Currently Using Substance Use Type: Prescription Drugs Advance Directives: No Advance Directives Information Provided: No Do you have a plan to hurt others: No Plan service: No Physical Exam 2 Vital Signs: Vital Signs: Last Vital Signs Temp 98 F 11/26/24 07:08 Pulse 90 11/26/24 07:08 Resp 16 11/26/24 07:08 BP 141/81 H 11/26/24 07:08 Pulse Ox 96 11/26/24 07:08 O2 Del Method Room Air 11/26/24 07:08 BMI result Body Mass Index 59.2 Medical Decision Making Medical Decision Making [facility] Narrative: This is a 44-year-old female with medical history of type 2 diabetes, HLD, morbid obesity, COPD, GERD, with complaints of intermittent right-sided chest pressure that radiated to the back, right shoulder, and right jaw that lasted approximately 20 minutes after having an emotional conversation with her daughter. The chest pain is not associated with any red flag symptoms such as nausea, vomiting, diaphoresis, syncope, dizziness, palpitations. The chest pain is not exacerbated when lying down or with position changes, in fact, the chest pain is relieved with deep inspiration and with ambulation. Symptoms had resolved by the time I met the patient. The patient does not have a history of CAD or cardiomyopathy. On chart review patient has seen [facility] 2 years ago in 2022 with a normal echo and normal CTA chest. Patient is somewhat sedentary in her daily life and has history of tobacco use smoking 1 pack of cigaretts every 3 days, however no estrogen use, recent long travel, pleuritic chest pain, tachypnea, hypoxia or calf pain with todays visit. Labs without leukocytosis/leukopenia, microcytic anemia with a hemoglobin at 9.4, and hematocrit of 30.1, no electrolyte abnormality, random serum glucose is WNL at 112. EKG reveals normal sinus rhythm with a nonspecific T-wave abnormality, no ST- elevation/depression, arrhythmia, lengthened QT, when comparing this EKG with the prior approximately 3 months ago on 09/06/2024 no significant change is found, troponins x2 undetectable at < 2.7. CXR negative for acute cardiopulmonary processes At this time due to clinical picture with intermittent chest pressure that is relieved by deep inspiration and with ambulation, with chest pain that started 20 minutes after having emotional conversation, EKG without ST- elevation/depression, troponins x2 negative without history of CAD, cardiomyopathy this is most likely atypical chest pain may be related to stress, depression or anxiety. I discussed this is patient who believes the chest pain may be due to anxiety and increased emotional life stressors as well. I discussed with the patient that she has seen [facility] in the past, and I will place another referral for her for possible Holter monitor and/or stress test for further evaluation of chest pain. Patient is in agreement with the plan. Differential Diagnosis Differential Diagnoses: The differential diagnosis associated with the presentation includes ACS PE Pneumothorax Atypical chest pain Admission/Observation Consideration of admission/observation: Escalation of care including admission/observation considered Lab Data MDM Lab Attestation statement: I reviewed the patient's lab results. 11/26/24 08:12 11/26/24 08:12 Labs: Lab Results 11/26/24 11/26/24 Range/Units 08:12 10:25 WBC 10.8 (4.8-10.8) X10*3/uL RBC 4.34 (4.20-5.50) X10*6/uL Hgb 9.4 L (12.0-16.0) g/dl Hct 30.1 L (37.0-47.0) % MCV 69.4 L (80.0-98.0) fL MCH 21.7 L (27.0-33.0) pg MCHC 31.2 (31.0-35.0) g/dl RDW 19.8 H (11.0-16.0) % Plt Count 310 (160-400) X10*3/uL MPV 9.3 L (9.4-12.3) fL Immature Gran % (Auto) 0.4 (0.0-0.4) % Neut % (Auto) 63.5 (45-73) % Lymph % (Auto) 23.7 (20-40) % [place] % (Auto) 6.1 (2-11) % Eos % (Auto) 5.9 H (0-4) % Baso % (Auto) 0.4 (0-2) % Lymph # (Auto) 2.6 (1.2-4.9) X10*3/uL [place] # (Auto) 0.7 (0.1-1.2) X10*3/uL Eos # (Auto) 0.6 H (0.0-0.4) X10*3/uL Baso # (Auto) 0.0 (0.0-0.2) X10*3/uL Abs Immat Gran (auto) 0.04 H (0.00-0.03) X10*3/uL Absolute Neuts (auto) 6.9 (2.0-8.3) x10*3/uL Absolute Nucleated RBC 0.000 (0.0-0.012) X10*3/uL Nucleated RBC % (auto) 0.0 (0.0-0.2) /100WBC Sodium 140 (135-145) mmol/L Potassium 3.3 (3.3-5.1) mmol/L Chloride 107 (96-108) mmol/L Carbon Dioxide 25 (22-29) mmol/L Anion Gap 11 L (12-20) BUN 16 (9-16) mg/dL Creatinine 1.09 (0.5-1.4) mg/dL Estim Creat Clear Calc 93.7 Estimated GFR 54 Random Glucose 112 (60-115) mg/dL Calcium 8.8 (8.4-10.2) mg/dL Magnesium 2.0 (1.6-2.6) mg/dL Total Bilirubin 0.3 (0.0-1.0) mg/dL AST 17 (5-31) U/L ALT 16 (0-31) U/L Alkaline Phosphatase 97 (39-117) U/L Troponin I High Sens < 2.7 < 2.7 (<3.5-17.0) ng/L NT-Pro-B Natriuret Pep 26.0 (<300) pg/mL Total Protein 7.2 (6.5-8.0) g/dL Albumin 3.6 (3.5-5.0) g/dL Independent Interpretation I performed an independent interpretation of an: EKG Interpretation: I independently interpreted the EKG which reveals normal sinus rhythm with a nonspecific T-wave abnormality, no specific ST elevation/depression, arrhythmia, lengthened QT Vent. Rate : 94 BPM Atrial Rate : 94 BPM P-R Int : 176 ms QRS Dur : 80 ms QT Int : 364 ms P-R-T Axes : 50 18 70 degrees QTcB Int : 455 ms Normal sinus rhythm Nonspecific T wave abnormality Abnormal ECG When compared with ECG of 06-Sep-2024 21:52, No significant change was found I independently interpreted the CXR which was negative for any acute cardiopulmonary abnormalities, I agree with the radiologist's interpretation Radiology Impression Discussion of test interpretation with radiology: I have reviewed the radiologist's reading. Radiologist Impression: CXR Findings: The lungs are adequately expanded. No focal consolidation. No effusion or pneumothorax. Cardiac and mediastinal contours are within normal limits. No acute osseous abnormality Impression: No acute process. This document has been electronically signed by: Nathaniel Martin MD on 11/26/2024 08:10:12 Dictated By: Nathaniel Martin MD Signed By: <Electronically signed by Nathaniel Martin MD in OV> 11/26/24 0811 Independent Historian Clinical information obtained from an independent historian. History obtained from or confirmed by: EMS External Record Review External record reviewed: Inpatient record, Office record and Outpatient record Chronic Conditions Patient?s care impacted by: Diabetes, Hypertension and Other (COPD, HLD, GERD, morbid obesity) Social Determinants Patient?s care significantly limited by Social Determinants of Health including: Other Social Determinant of Health Discharge Plan Discharge Clinical Impression: Atypical chest pain Patient Disposition: Home, Self-Care Additional Instructions: You were evaluated in the ED today due to right-sided intermittent chest pain. Your lab work was negative for infection, or electrolyte abnormality, however you do have a mild anemia with a hemoglobin of 9.4, and hematocrit of 30.1, this needs to be followed and re-evaluated by your primary care doctor. Your EKG revealed normal sinus rhythm, without emergent concern for cardiac issue. Your troponin which is an enzyme in the heart gives off when under stress or damage were both negative today. I have placed referral to [facility], it looks like you have been there in the past approximately 2 years ago. You may need further workup including Holter monitor or stress test for further evaluation of this chest pain. Please call their office as they will not call you. Additionally, this chest pain may be related to increased stressors in your life. Please follow up with your primary care doctor for further evaluation and management of life stressors that may be causing this pain. Please return to the emergency department if you experience fevers over 100.4?, worsening chest pain, shortness of breath, nausea, vomiting, lightheadedness, dizziness, heart palpitations, or any new/worsening/concerning symptoms. Prescriptions: No Action cefuroxime axetil 250 mg tablet 250 mg PO BID 7 Days Qty: 14 0RF fluconazole 150 mg tablet 150 mg PO Q3D Qty: 2 0RF potassium chloride [K-Tab] 20 mEq tablet extended release 20 meq PO DAILY Qty: 7 0RF tizanidine 4 mg tablet 4 mg PO TID pantoprazole 40 mg tablet,delayed release (DR/EC) 40 mg PO DAILY@0630 albuterol sulfate [Ventolin HFA] 90 mcg/actuation HFA aerosol inhaler 2 puff INHALATION Q6H budesonide-formoterol [Symbicort] 80-4.5 mcg/actuation HFA aerosol inhaler 2 puff INHALATION BID losartan 50 mg Tablet 100 mg PO DAILY Qty: 30 0RF Protocol: Hold for SBP< HOLD for SBP < : 90 atorvastatin 80 mg Tablet 80 mg PO BEDTIME Qty: 30 0RF prednisone 20 mg Tablet 40 mg PO DAILY Qty: 4 0RF amlodipine 10 mg Tablet 10 mg PO DAILY Qty: 30 0RF Protocol: Hold for SBP< HOLD for SBP < : 90 glipizide 5 mg Tablet 5 mg PO BIDWM Qty: 60 0RF ferrous sulfate 324 mg (65 mg iron) tablet,delayed release (DR/EC) 324 mg PO DAILY Qty: 30 0RF Referrals: [facility] [Provider Group] Print Language: Monegasque
[2024-11-26 08:17] LABS: MANUAL DIFF FLAG NO
[2024-11-26 08:22] LABS: Hematocrit 30.1 % (37.0-47.0); Hemoglobin 9.4 g/dl (12.0-16.0); Imm Gran Abs Auto 0.04 X10*3/uL (0.00-0.03); Imm Gran Pct Auto 0.4 % (0.0-0.4); Lymphocytes Absolute Auto 2.6 X10*3/uL (1.2-4.9); Mean Corpuscular HGB Conc 31.2 g/dl (31.0-35.0); Mean Corpuscular Hemoglobin 21.7 pg (27.0-33.0); Mean Corpuscular Volume 69.4 fL (80.0-98.0); NRBC Abs Auto 0.000 X10*3/uL (0.0-0.012); NRBC Pct Auto 0.0 /100WBC (0.0-0.2); Platelet Count 310 X10*3/uL (160-400); Red Blood Count 4.34 X10*6/uL (4.20-5.50); White Blood Count 10.8 X10*3/uL (4.8-10.8)
[2024-11-26 08:41] LABS: Troponin-I High Sensitivity < 2.7 ng/L (<3.5-17.0)
[2024-11-26 08:47] LABS: Alanine Aminotransferase 16 U/L (0-31); Albumin Level 3.6 g/dL (3.5-5.0); Alkaline Phosphatase 97 U/L (39-117); Anion Gap 11 (12-20); Aspartate Amino Transferase 17 U/L (5-31); Blood Urea Nitrogen 16 mg/dL (9-16); Calcium 8.8 mg/dL (8.4-10.2); Carbon Dioxide 25 mmol/L (22-29); Chloride 107 mmol/L (96-108); Creatinine Clr Calc Pharmacy 93.7; Estimated Glomerular Filt Rate 54; Magnesium 2.0 mg/dL (1.6-2.6); Potassium 3.3 mmol/L (3.3-5.1); Sodium 140 mmol/L (135-145); Total Protein 7.2 g/dL (6.5-8.0)
[2024-11-26 10:06] LABS: NT Pro B Type Natriuretic Pept 26.0 pg/mL (<300)
[2024-11-26 10:56] LABS: Troponin-I High Sensitivity < 2.7 ng/L (<3.5-17.0)
[2024-11-26 11:13] VITALS: BP 143/92; PULSE 88; RESP 16; TEMP 36.6; O2SAT 99
[2024-11-26 11:25] VITALS: BP 143/92; PULSE 88; RESP 16; TEMP 36.6; O2SAT 99
== END 2024-11-26 11:25 | disposition home or self-care (01) ==
PROVIDERS: Emergency Provider Emergency Medicine Emergency Medical Services; PCP Internal Medicine
DX: R07.89 Other chest pain (principal); I10 Essential (primary) hypertension; R06.02 Shortness of breath; E11.9 Type 2 diabetes mellitus without complications; Z79.899 Other long term (current) drug therapy; Z87.891 Personal history of nicotine dependence
CPT/HCPCS: 36415; 71046; 80053; 83735; 83880; 84484; 85025; 93005; 99283; 99285

== ENCOUNTER → 2024-11-26 06:37 | Outpatient (BNV) | payer MEDICARE, MEDICAID, SELFPAY | PROVIDERS: Emergency Provider Emergency Medicine Emergency Medical Services; PCP Internal Medicine; Visit Provider Internal Medicine Cardiovascular Disease | DX: R94.31 Abnormal electrocardiogram [ECG] [EKG] (principal); R07.89 Other chest pain | CPT/HCPCS: 93010 ==

== ENCOUNTER → 2024-11-26 07:36 | Outpatient (BNV) | payer MEDICARE, MEDICAID, SELFPAY | PROVIDERS: Emergency Provider Emergency Medicine Emergency Medical Services; PCP Internal Medicine; Visit Provider Radiology Vascular & Interventional Radiology | DX: R07.9 Chest pain, unspecified (principal) | CPT/HCPCS: 71046 ==

== ENCOUNTER 2025-01-21 22:56 | Emergency (ER) | payer MEDICARE, MEDICAID, SELFPAY ==
--- NOTE | ~2025-01-21 | XR_ITS ---
CLINICAL HISTORY: sob Exam: AP portable chest x-ray. Comparison: November 26, 2024. Findings: Lungs are well inflated. Cardiac silhouette is within normal limits. No focal areas of consolidation. No pleural effusion or pneumothorax. Impression: No acute findings. This document has been electronically signed by: Castillo Salomon MD on 01/22/2025 00:20:53
[2025-01-21 22:58] VITALS: BP 146/89; BP 170/94; PULSE 104; PULSE 108; RESP 20; TEMP 36.9; O2SAT 99; BMI 59.2
--- OUTSIDE RECORDS SUMMARY | 2025-01-21 23:20 | XMS_ITS | Clinical Summary ---
Author Organization 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
--- OUTSIDE RECORDS SUMMARY | 2025-01-21 23:20 | XMS_ITS | Clinical Summary ---
Author Organization [facility] Address [address] [place] [address] Care Team Providers Care Treasury Associate Name Role Phone Unavailable Primary Care Provider Unavailabl e Medical History Medical History Date Comments Hypertension DX:Hypertension Kidney infection DX:Kidney infec tion Arthritis DX:Arthritis Anemia DX:Anemia Family History Medical History Relation Name Comments Immunodeficiency Neg Hx Social History Tobacco Use Types Packs/Day Years Used Date Smoking Tobacco: Former Cigarettes 23 0 06/22/1992 - 06/23/2015 Smokeless Tobacco: Never [...] 19+ 3-dose series) 1997 Cervical Cancer Screening: P ap Smear 1999 Depression Screening 03/02/2024 COVID-19 Vaccine (1 - 2024-2 6 season) 2024 Influenza Vaccine (#1) 2024 RSV Immunization Adult Patie nts (1 - 1-dose 75+ series) 2053 HIB Vaccines Aged Out No longer eligi [...] age to complete this topic Pneumococcal Vaccine: Pediat rics (0 to 5 Years) and At-Risk Patients (6 to 49 Years) Aged Out No longer eligible b ased on patient's age to complete this topic RSV Immunization Patients Un shady 20 months Aged Out No longer eligible b ased on patient's age to complete this topic Varicella Vaccines Aged Out No longer eligible based on patient's age to complete this topic
[2025-01-21 23:25] LABS: IDNOW Serial# 6674DD1D; Strep A Nucleic Acid Negative (Negative)
[2025-01-21 23:56] LABS: Resp Syncy Virus RNA Qual PCR NEGATIVE (Negative); SARS COV2 PCR INHOUSE NEGATIVE (Negative)
--- NOTE | 2025-01-21 23:58 | ED.URI ---
HPI - URI/Sore Throat General Chief Complaint: Upper Respiratory Symptoms Stated Complaint: Flu-like symptoms Time Seen by Provider: 01/21/25 23:47 Source: patient Mode of arrival: ambulatory Limitations: no limitations History of Present Illness ED Provider: DR. Hood HPI Narrative: 44-year-old female came in for evaluation of subjective fever, congestion, facial pressure and pain, coughing, sore throat, generalized body ache, +exposure to grandson he was sick and coughed in the patient's face 2 days ago then patient started to have the above symptoms, grandson is improving now patient decided to come in for worsening of her symptoms. Related Data Home Medications ?Medication ?Instructions ?Recorded ?Confirmed albuterol sulfate 90 mcg/actuation 2 puff inhalation Q6H 10/02/22 10/02/22 aerosol inhaler (Ventolin HFA) budesonide-formoterol HFA 80 2 puff inhalation BID 10/02/22 10/02/22 mcg-4.5 mcg/actuation aerosol inhaler (Symbicort) pantoprazole 40 mg tablet,delayed 40 mg PO DAILY@0630 10/02/22 10/02/22 release tizanidine 4 mg tablet 4 mg PO TID 10/02/22 10/02/22 Previous Rx's ?Medication ?Instructions ?Recorded amlodipine 10 mg tablet 10 mg PO DAILY #30 tabs 10/05/22 atorvastatin 80 mg tablet 80 mg PO BEDTIME #30 tabs 10/05/22 ferrous sulfate 324 mg (65 mg 324 mg PO DAILY #30 tabs 10/05/22 iron) tablet,delayed release glipizide 5 mg tablet 5 mg PO BIDWM #60 tabs 10/05/22 losartan 50 mg tablet 100 mg PO DAILY #30 tabs 10/05/22 prednisone 20 mg tablet 40 mg (2 x 20 mg) PO DAILY #4 tabs 10/05/22 cefuroxime axetil 250 mg tablet 250 mg PO BID 7 days #14 tabs 03/07/23 fluconazole 150 mg tablet 150 mg PO Q3D 2 doses #2 tabs 03/07/23 potassium chloride 20 mEq 20 meq PO DAILY #7 tabs 09/07/24 tablet,extended release (K-Tab) amoxicillin 875 mg-potassium 1 tab PO BID #14 tabs 01/22/25 clavulanate 125 mg tablet Allergies Allergy/AdvReac Type Severity Reaction Status Date / Time aspirin Allergy Unknown unknown Verified 01/21/25 23:06 Review of Systems Review of Systems: All other systems are reviewed and are negative Constitutional: Reports as per HPI and Reports no additional constitutional complaints Eyes: Reports as per HPI and Reports no additional eye complaints Reports system reviewed and no additional complaints, except as documented Cardiovascular: Reports as per HPI and Reports no additional cardiovascular complaints Respiratory: Reports as per HPI and Reports no additional respiratory complaints Gastrointestinal: Reports as per HPI and Reports no additional gastrointestinal complaints Genitourinary: Reports no additional female genitourinary complaints Musculoskeletal: Reports no additional musculoskeletal complaints Skin/Breast: Reports system reviewed and no additional complaints, except as docu Psychiatric: Reports no additional psychiatric complaints Endocrine: Reports no additional endocrine complaints Hematologic/Lymphatic: Reports no additional hematologic/lymphatic complaints Allergic/Immunologic: Reports no additional allergic/immunologic complaints Reports system reviewed and no additional complaints, except as documented and Reports Abnormal speech present [facility] Past Medical History Medical History Abnormal ECG COPD (chronic obstructive pulmonary disease) Chronic back pain GERD (gastroesophageal reflux disease) Hypertension Social History Social History Household Members: Family and Children Household Members Other:: grandson and 2 daughters Housing: Apartment Do you presently have visiting nurse or other home services: No Alcohol intake: never Patient Tobacco Use Status: Former Tobacco user e-Cigarette/Vaping Use: Currently Using Substance Use Type: Prescription Drugs Advance Directives: No Advance Directives Information Provided: Yes Do you have a plan to hurt others: No Plan service: No Physical Exam Vital Signs: Vital Signs: Last Vital Signs Temp 98.4 F 01/21/25 22:58 Pulse 104 H 01/21/25 22:58 Resp 20 01/21/25 22:58 BP 170/94 H 01/21/25 22:58 Pulse Ox 99 01/21/25 22:58 O2 Del Method Room Air 01/21/25 22:58 BMI result Body Mass Index 59.2 Vital signs have been reviewed and appear to be correct. Blood pressure elevated. Heart rate Elevated. Respiratory rate normal. Temperature normal. Oxygen saturation normal. Appearance: Alert. Oriented X3. No acute distress. Head: Normal external exam. Normocephalic. Atraumatic. No Gonzales signs noted. No raccoon eyes noted Eyes: PERRLA. EOMI. Conjunctiva and sclera normal. Eyelids normal. ENT: TM's Normal. Pharynx normal. Uvula midline. Moist mucous membranes. Diffuse facial tenderness with percussion more on the left frontal and maxillary sinuses. No trismus noted. No drooling noted. No muffled voice noted. Neck: Normal inspection. Neck supple. FROM. No adenopathy. Thyroid Normal. No meningeal signs. No neck mass noted. CVS: Normal heart rate and rhythm. Heart sound normal. No murmurs noted. Pulses normal throughout. Respiratory: No respiratory distress. Painless inspiration. Breath sounds normal. No wheezes/rales/rhonchi noted. Chest nontender. No accessory muscle usage noted or decreased air movement noted. Abdomen: Soft and nontender. Bowel sounds normal in all 4 quadrants. No distention noted. No organomegaly noted. No visible injury noted. Back: No CVA tenderness. Full range of motion noted. Skin: Skin warm and dry. Normal skin color. Normal skin turgor. No rashes/lesions/lacerations noted. Extremities: No lower extremity edema. Extremities exhibit normal range of motion. Extremities nontender. Neuro: Oriented X 3. Cranial nerve exam: II-XII are grossly intact No motor deficit. No sensory deficit. Reflexes normal. Course Reevaluation(s) Reevaluation #1: 44-year-old female came in with upper respiratory symptoms, exam is consistent was acute sinusitis, otherwise negative strep pharyngitis, negative for influenza a/B, negative for COVID-19 infection. Chest x-ray is unremarkable for pneumonia, patient's exam is significant for left frontal/ maxillary sinuses tenderness on percussion will start the patient on Augmentin. Time: 01:10 Medical Decision Making Differential Diagnosis Differential Diagnoses: The differential diagnosis associated with the presentation includes ( Sinusitis, pharyngitis, pneumonia, pneumothorax, pleural effusion, influenza a, COVID-19 infection, RSV.) Admission/Observation Consideration of admission/observation: Escalation of care including admission/observation considered Lab Data MDM Lab Attestation statement: I reviewed the patient's lab results. Labs: Lab Results 01/21/25 Range/Units 23:09 Influenza Type A (PCR) NEGATIVE (Negative) Influenza Type B (PCR) NEGATIVE (Negative) RSV RNA Qual (PCR) NEGATIVE (Negative) SARS-CoV-2 RNA (RT-PCR) NEGATIVE (Negative) S. pyogenes GrpA FUNMI Negative (Negative) Independent Interpretation I performed an independent interpretation of an: Plain X-Ray ( chest: No acute intrathoracic pathology.) Radiology Impression Discussion of test interpretation with radiology: I have reviewed the radiologist's reading. Discharge Plan Discharge Clinical Impression: Sinusitis, acute Patient Disposition: Home, Self-Care Instructions: Sinusitis (ED) Prescriptions: New amoxicillin-pot clavulanate 875-125 mg tablet 1 tab PO BID Qty: 14 0RF No Action cefuroxime axetil 250 mg tablet 250 mg PO BID 7 Days Qty: 14 0RF fluconazole 150 mg tablet 150 mg PO Q3D Qty: 2 0RF potassium chloride [K-Tab] 20 mEq tablet extended release 20 meq PO DAILY Qty: 7 0RF tizanidine 4 mg tablet 4 mg PO TID pantoprazole 40 mg tablet,delayed release (DR/EC) 40 mg PO DAILY@0630 albuterol sulfate [Ventolin HFA] 90 mcg/actuation HFA aerosol inhaler 2 puff INHALATION Q6H budesonide-formoterol [Symbicort] 80-4.5 mcg/actuation HFA aerosol inhaler 2 puff INHALATION BID losartan 50 mg Tablet 100 mg PO DAILY Qty: 30 0RF Protocol: Hold for SBP< HOLD for SBP < : 90 atorvastatin 80 mg Tablet 80 mg PO BEDTIME Qty: 30 0RF prednisone 20 mg Tablet 40 mg PO DAILY Qty: 4 0RF amlodipine 10 mg Tablet 10 mg PO DAILY Qty: 30 0RF Protocol: Hold for SBP< HOLD for SBP < : 90 glipizide 5 mg Tablet 5 mg PO BIDWM Qty: 60 0RF ferrous sulfate 324 mg (65 mg iron) tablet,delayed release (DR/EC) 324 mg PO DAILY Qty: 30 0RF Referrals: Calderon Goel MD [Primary Care Provider, Internal Medicine] Print Language: Welsh
[2025-01-22 00:40] VITALS: BP 142/91; PULSE 104; RESP 16; TEMP 37.1; O2SAT 97
[2025-01-22 00:50] VITALS: BP 142/91; PULSE 104; RESP 16; TEMP 37.1; O2SAT 97
== END 2025-01-22 01:02 | disposition home or self-care (01) ==
PROVIDERS: Emergency Provider Emergency Medicine; PCP Internal Medicine
DX: J01.10 Acute frontal sinusitis, unspecified (principal); J01.00 Acute maxillary sinusitis, unspecified; J44.9 Chronic obstructive pulmonary disease, unspecified; I10 Essential (primary) hypertension; Z79.899 Other long term (current) drug therapy; Z03.818 Encounter for observation for suspected exposure to other biological agents ruled out
CPT/HCPCS: 71045; 87637; 87651; 99283; 99284

== ENCOUNTER → 2025-01-21 23:54 | Outpatient (BNV) | payer MEDICARE, MEDICAID, SELFPAY | PROVIDERS: Emergency Provider Emergency Medicine; PCP Internal Medicine; Visit Provider Radiology Diagnostic Radiology | DX: R06.02 Shortness of breath (principal) | CPT/HCPCS: 71045 ==

== ENCOUNTER 2025-02-10 18:28 | Emergency (ER) | payer MEDICARE, MEDICAID, SELFPAY ==
[2025-02-10 18:45] VITALS: BP 214/124; PULSE 92; RESP 18; TEMP 36.6; O2SAT 100; BMI 56.6
--- NOTE | 2025-02-10 18:50 | ED.GENADULT ---
HPI - General Adult General Chief complaint: Abdominal Pain Stated complaint: cramps Related Data Home Medications ?Medication ?Instructions ?Recorded ?Confirmed albuterol sulfate 90 mcg/actuation 2 puff inhalation Q6H 10/02/22 10/02/22 aerosol inhaler (Ventolin HFA) budesonide-formoterol HFA 80 2 puff inhalation BID 10/02/22 10/02/22 mcg-4.5 mcg/actuation aerosol inhaler (Symbicort) pantoprazole 40 mg tablet,delayed 40 mg PO DAILY@0630 10/02/22 10/02/22 release tizanidine 4 mg tablet 4 mg PO TID 10/02/22 10/02/22 Previous Rx's ?Medication ?Instructions ?Recorded amlodipine 10 mg tablet 10 mg PO DAILY #30 tabs 10/05/22 atorvastatin 80 mg tablet 80 mg PO BEDTIME #30 tabs 10/05/22 ferrous sulfate 324 mg (65 mg 324 mg PO DAILY #30 tabs 10/05/22 iron) tablet,delayed release glipizide 5 mg tablet 5 mg PO BIDWM #60 tabs 10/05/22 losartan 50 mg tablet 100 mg PO DAILY #30 tabs 10/05/22 prednisone 20 mg tablet 40 mg (2 x 20 mg) PO DAILY #4 tabs 10/05/22 cefuroxime axetil 250 mg tablet 250 mg PO BID 7 days #14 tabs 03/07/23 fluconazole 150 mg tablet 150 mg PO Q3D 2 doses #2 tabs 03/07/23 potassium chloride 20 mEq 20 meq PO DAILY #7 tabs 09/07/24 tablet,extended release (K-Tab) amoxicillin 875 mg-potassium 1 tab PO BID #14 tabs 01/22/25 clavulanate 125 mg tablet Allergies Allergy/AdvReac Type Severity Reaction Status Date / Time aspirin Allergy Unknown unknown Verified 02/10/25 18:47 [facility] Past Medical History Medical History Abnormal ECG COPD (chronic obstructive pulmonary disease) Chronic back pain GERD (gastroesophageal reflux disease) Hypertension Social History Social History Household Members: Family and Children Household Members Other:: grandson and 2 daughters Housing: Apartment Do you presently have visiting nurse or other home services: No Alcohol intake: never Patient Tobacco Use Status: Former Tobacco user e-Cigarette/Vaping Use: Currently Using Substance Use Type: Prescription Drugs Advance Directives: No Advance Directives Information Provided: No service: No Physical Exam ED Vital Signs: Vital Signs - 24 hr 02/10/25 18:45 Temperature 97.8 F Pulse Rate 92 Respiratory Rate 18 Blood Pressure 214/124 H Pulse Oximetry 100 Oxygen Delivery Method Room Air BMI result Body Mass Index 56.6 Course Course Course Narrative: Rapid medical examination performed in triage by Annia Bryant PA-C: Patient is a 44 year old assigned female at presenting to the emergency department with abdominal cramping. Patient states that her menstrual cycle started this morning and she has had abdominal pain ever since. Patient has a history of high blood pressure and has not taken any of her medications. Detailed physical exam and review of systems are deferred to the plastics technician. Patient placed back in the waiting room pending room availability and results. Patient left the department without completing treatment. Patient left the department before myself or any of the other emergency department clinicians could explain to or review with the patient; physical exam findings, test results, need or lack there of for additional testing, need or lack there of for a procedure to be performed, need or lack there of for hospital admission / transfer, need or lack there of for prescription medication, treatment options, or a treatment plan. Patient's limited physical exam performed in triage showed a non-toxic individual with appropriate breathing, alert and oriented, and ambulating without assistance. Medical Decision Making Lab Data 02/10/25 19:09 02/10/25 19:09 Labs: Lab Results 02/10/25 Range/Units 19:09 WBC 12.2 H (4.8-10.8) X10*3/uL RBC 5.27 D (4.20-5.50) X10*6/uL Hgb 10.8 L (12.0-16.0) g/dl Hct 36.0 L (37.0-47.0) % MCV 68.3 L (80.0-98.0) fL MCH 20.5 L (27.0-33.0) pg MCHC 30.0 L (31.0-35.0) g/dl RDW 21.7 H (11.0-16.0) % Plt Count 345 (160-400) X10*3/uL MPV 9.1 L (9.4-12.3) fL Immature Gran % (Auto) 0.4 (0.0-0.4) % Neut % (Auto) 72.4 (45-73) % Lymph % (Auto) 17.1 L (20-40) % [place] % (Auto) 5.7 (2-11) % Eos % (Auto) 3.9 (0-4) % Baso % (Auto) 0.5 (0-2) % Lymph # (Auto) 2.1 (1.2-4.9) X10*3/uL [place] # (Auto) 0.7 (0.1-1.2) X10*3/uL Eos # (Auto) 0.5 H (0.0-0.4) X10*3/uL Baso # (Auto) 0.1 (0.0-0.2) X10*3/uL Abs Immat Gran (auto) 0.05 H (0.00-0.03) X10*3/uL Absolute Neuts (auto) 8.8 H (2.0-8.3) x10*3/uL Absolute Nucleated RBC 0.000 (0.0-0.012) X10*3/uL Nucleated RBC % (auto) 0.0 (0.0-0.2) /100WBC Sodium 140 (135-145) mmol/L Potassium 3.3 (3.3-5.1) mmol/L Chloride 104 (96-108) mmol/L Carbon Dioxide 25 (22-29) mmol/L Anion Gap 14 (12-20) BUN 12 (9-16) mg/dL Creatinine 1.15 (0.5-1.4) mg/dL Estim Creat Clear Calc 89.3 Estimated GFR 51 Random Glucose 112 (60-115) mg/dL Calcium 9.5 D (8.4-10.2) mg/dL Magnesium 2.1 (1.6-2.6) mg/dL Total Bilirubin 0.3 (0.0-1.0) mg/dL AST 21 (5-31) U/L ALT 29 (0-31) U/L Alkaline Phosphatase 98 (39-117) U/L Total Protein 8.5 H (6.5-8.0) g/dL Albumin 4.4 (3.5-5.0) g/dL Discharge Plan Discharge Clinical Impression: Abdominal cramping Patient Disposition: Left W/O Completing Treatment Prescriptions: No Action cefuroxime axetil 250 mg tablet 250 mg PO BID 7 Days Qty: 14 0RF fluconazole 150 mg tablet 150 mg PO Q3D Qty: 2 0RF potassium chloride [K-Tab] 20 mEq tablet extended release 20 meq PO DAILY Qty: 7 0RF amoxicillin-pot clavulanate 875-125 mg tablet 1 tab PO BID Qty: 14 0RF tizanidine 4 mg tablet 4 mg PO TID pantoprazole 40 mg tablet,delayed release (DR/EC) 40 mg PO DAILY@0630 albuterol sulfate [Ventolin HFA] 90 mcg/actuation HFA aerosol inhaler 2 puff INHALATION Q6H budesonide-formoterol [Symbicort] 80-4.5 mcg/actuation HFA aerosol inhaler 2 puff INHALATION BID losartan 50 mg Tablet 100 mg PO DAILY Qty: 30 0RF Protocol: Hold for SBP< HOLD for SBP < : 90 atorvastatin 80 mg Tablet 80 mg PO BEDTIME Qty: 30 0RF prednisone 20 mg Tablet 40 mg PO DAILY Qty: 4 0RF amlodipine 10 mg Tablet 10 mg PO DAILY Qty: 30 0RF Protocol: Hold for SBP< HOLD for SBP < : 90 glipizide 5 mg Tablet 5 mg PO BIDWM Qty: 60 0RF ferrous sulfate 324 mg (65 mg iron) tablet,delayed release (DR/EC) 324 mg PO DAILY Qty: 30 0RF Discharge Date/Time: 02/10/25 22:39
[2025-02-10 19:15] LABS: Hematocrit 36.0 % (37.0-47.0); Hemoglobin 10.8 g/dl (12.0-16.0); Imm Gran Abs Auto 0.05 X10*3/uL (0.00-0.03); Imm Gran Pct Auto 0.4 % (0.0-0.4); Lymphocytes Absolute Auto 2.1 X10*3/uL (1.2-4.9); MANUAL DIFF FLAG NO; Mean Corpuscular HGB Conc 30.0 g/dl (31.0-35.0); Mean Corpuscular Hemoglobin 20.5 pg (27.0-33.0); Mean Corpuscular Volume 68.3 fL (80.0-98.0); NRBC Abs Auto 0.000 X10*3/uL (0.0-0.012); NRBC Pct Auto 0.0 /100WBC (0.0-0.2); Platelet Count 345 X10*3/uL (160-400); Red Blood Count 5.27 X10*6/uL (4.20-5.50); White Blood Count 12.2 X10*3/uL (4.8-10.8)
[2025-02-10 19:32] LABS: Alanine Aminotransferase 29 U/L (0-31); Albumin Level 4.4 g/dL (3.5-5.0); Alkaline Phosphatase 98 U/L (39-117); Anion Gap 14 (12-20); Aspartate Amino Transferase 21 U/L (5-31); Blood Urea Nitrogen 12 mg/dL (9-16); Calcium 9.5 mg/dL (8.4-10.2); Carbon Dioxide 25 mmol/L (22-29); Chloride 104 mmol/L (96-108); Creatinine Clr Calc Pharmacy 89.3; Estimated Glomerular Filt Rate 51; Magnesium 2.1 mg/dL (1.6-2.6); Potassium 3.3 mmol/L (3.3-5.1); Sodium 140 mmol/L (135-145); Total Protein 8.5 g/dL (6.5-8.0)
--- OUTSIDE RECORDS SUMMARY | 2025-02-10 22:31 | XMS_ITS | Clinical Summary ---
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
--- OUTSIDE RECORDS SUMMARY | 2025-02-10 22:31 | XMS_ITS | Clinical Summary ---
Author Organization [facility] Prior to 07/30/24 Address [address] [place] [address] Care Team Providers Care Sustainable Landscape Architect Name Role Phone Unavailable Primary Care Provider [...] PO TID FOR 26 DAYS PRF PAIN DIRECTOR OF INVESTIGATIONS CHECKED 0 09/26/2019 Active amLODIPine (NORVASC) tablet [...] Advance Directives For more information, please contact: [phone] Documents on File Type Date Recorded Patient Prepress Proofer Expl anation Advance Directive and Living Will [...]
== END 2025-02-10 22:39 | disposition left against medical advice (07) ==
PROVIDERS: Physician Assistant Medical; Emergency Provider Emergency Medicine
DX: R10.9 Unspecified abdominal pain (principal); I10 Essential (primary) hypertension; E78.5 Hyperlipidemia, unspecified; Z79.899 Other long term (current) drug therapy
CPT/HCPCS: 36415; 80053; 83735; 85025; 99281; 99283